=== PATIENT | female | born 1990 | race Caucasian/White ===

== ENCOUNTER → 2016-05-15 | Outpatient (CLI) | payer OTHER | LOC: OD 14:33 | PROVIDERS: ATTEND Midwife | DX: J06.9 Acute upper respiratory infection, unspecified (principal); R07.0 Pain in throat | CPT/HCPCS: 87070; 87804; 87880 ==

== ENCOUNTER 2016-06-28 02:42 | Outpatient (CLI) | payer OTHER ==
[2016-06-28 03:55] LABS: APPEARANCE,URINE SLIGHTLY-CLOUDY; BILIRUBIN,URINE NEGATIVE (NEGATIVE); GLUCOSE, URINE NEGATIVE (NEGATIVE); KETONES,URINE NEGATIVE (NEGATIVE); LEUKOCYTE ESTERASE,URINE MODERATE (NEGATIVE); NITRITE,URINE NEGATIVE (NEGATIVE); PROTEIN,URINE NEGATIVE (NEGATIVE); URINE SPECIFIC GRAVITY 1.012; UROBILINOGEN,URINE NEGATIVE mg/dL (<2.0)
[2016-06-28 04:15] LABS: URINE BARBITURATES SCREEN NEGATIVE; URINE METHADONE SCREEN NEGATIVE; URINE OPIATES LOW NEGATIVE; URINE PHENCYCLIDINE SCREEN NEGATIVE
[2016-06-28] MEDS ORDERED: ONDANSETRON 4 MG TAB.RAPDIS ONE (04:51)
[2016-06-28] MEDS ORDERED: ONDANSETRON 4 MG TAB.RAPDIS PO ONE (05:00)
== END 2016-06-28 05:01 | disposition home or self-care (01) ==
LOC: LC 02:42
PROVIDERS: ATTEND Student in an Organized Health Care Education/Training Program
PROC: 4A1HXCZ Monitoring of Products of Conception, Cardiac Rate, External Approach (ICD-10-PCS; principal; 2016-06-28)
DX: O47.1 False labor at or after 37 completed weeks of gestation (principal); Z3A.39 39 weeks gestation of pregnancy
CPT/HCPCS: 59025; 81005; 80307; S0119

== ENCOUNTER 2016-06-28 07:01 | Inpatient (IN) | payer OTHER ==
--- NOTE | 2016-06-28 07:04 | Non Stress Test Report ---
Non Stress Test Datetime Report Generated by CPN: 06/28/2016 07:04 DEMOGRAPHIC EGA NST: 39.3 INDICATION Indication for Study: Ordered by Provider Indication for Study (NST) Other: LC MONITORING Monitor Explained: Monitor Explained; Test Explained; Patient Verbalized Understanding Time on Monitor: 06/28/2016 02:58 Time off Monitor: 06/28/2016 03:30 NST Duration: 32 NST INTERVENTIONS NST Interventions: PO Hydration; Reposition Patient Physician Notified NST: Dr. Echevarria BABY A: [id number] BABY A Movement : Present Contraction Frequency : 1-4 FHR Baseline : 120 Accelerations : 15X15 Decelerations : None Variability : Moderate 6-25bpm NST Review: Meets Criteria for Reactive NST NST Review and Verified By : NEHEMIAS Garcia NST Results: Reactive NST REPORT Report Trigger: Send Report
--- NOTE | 2016-06-28 08:00 | L&D Flow Sheet ---
LD Flowsheet Datetime Report Generated by CPN: 06/28/2016 08:00 Datetime: 06/28/2016 07:49 NBP Sys/Lela/Mean (mmHg): 141 (QS system process) : 92 (QS system process) : 110 (QS system process) Pulse: 81 (QS system process) LaborFlag: Antepartum (QS system process) Datetime: 06/28/2016 07:38 Pain Assessment Comments: hot pack applied to back (Rucsandra Roberta, RN) Patient Care Patient Position/Activity: Left Lateral (Rucsandra Roberta, RN) Comfort Measures: Hot/Cold Pack (Rucsandra Roberta, RN) LaborFlag: Antepartum (QS system process) Datetime: 06/28/2016 07:34 NBP Sys/Lela/Mean (mmHg): 135 (QS system process) : 93 (QS system process) : 108 (QS system process) Pulse: 81 (QS system process) LaborFlag: Antepartum (QS system process) Datetime: 06/28/2016 07:30 Uterine Activity Monitor Mode: External; Palpation (Rucsandra Roberta, RN) Frequency (min): x2 (Rucsandra Roberta, RN) Quality: Mild/Moderate (Rucsandra Roberta, RN) Duration (sec): 70-110 (Rucsandra Roberta, RN) Resting Tone (Palpate): Relaxed (Rucsandra Roberta, RN) Assessment A Monitor Mode: External US (Rucsandra Roberta, RN) FHR Baseline Rate : 125 (Rucsandra Roberta, RN) Variability: Moderate 6-25 bpm (Rucsandra Roberta, RN) Accelerations: None (Rucsandra Roberta, RN) Decelerations: None (Rucsandra Roberta, RN) Datetime: 06/28/2016 07:29 NBP Sys/Lela/Mean (mmHg): 139 (QS system process) : 90 (QS system process) : 108 (QS system process) Pulse: 84 (QS system process) LaborFlag: Antepartum (QS system process) Datetime: 06/28/2016 07:28 Temperature (F): 97.7 (Coltonandra Granados, RN) Temperature (C): 36.5 (QS system process) Frequency (min): 2-5 min (Coltonandra Granados, RN) Pain Pain Scale: 5 (Smooth Granados, RN) Pain Presence: Intermittent (Smooth Granados, RN) Pain Type: Contraction (Smooth Granados, RN) Pain Location: Abdomen; Back (Smooth Granados, RN) Pain Goal: 5 ([facility]) Pain Relief Measures: Comfort Measures ([facility]) Pain Coping: Talking Through Contractions ([facility], [facility]) Vaginal Bleeding: None ([facility], RN) Maternal Assessment Level of Consciousness: Fully Conscious ([facility]) DTR's/Clonus: DTRs 2+; No Clonus ([facility]) Headache: Denies ([facility]) Breath Sounds, Left: Clear and Equal ([facility]) Breath Sounds, Right: Clear and Equal ([facility]) Nausea/Vomiting: Denies ([facility]) LaborFlag: Antepartum (QS system process) Datetime: 06/28/2016 07:25 Patient Care Patient Position/Activity: Right Tilt (Smooth Rubinahan, RN) Datetime: 06/28/2016 07:23 Vaginal Exam Dilatation (cm): 2.5 (Smooth Granados, RN) Effacement (%): 80 (Smooth Granados, RN) Station: -2 (Smooth Granados, RN) Exam by: Serene Granados RN (Smooth Granados, RN) Datetime: 06/28/2016 07:22 Maternal Comments: pt reports taking Benadryl about 1 hour prior to arrival on L_D. (Smooth Granados, RN) Datetime: 06/28/2016 04:54 Medications Antiemetics/Antacids: Zofran ODT (mg) @ (Annotations: 4) (Sena Andrade RN) Patient Care Comments: Discussed OTC Medications and term with patient and family; all verbalized understanding. (Sena Andrade, RN) Datetime: 06/28/2016 04:48 Communication Communication: RN Reviewed Strip; Provider Orders Received; Call/Page Placed to Provider (Sena Andrade, RN) Communication Comments: Informed Dr. Echevarria of patient nausea/vomiting and vag exam; orders received for Zofran 4 mg ODT and to discharge home. (Sena Andrade, RN) Datetime: 06/28/2016 04:43 Vaginal Exam Dilatation (cm): 2.0 (Sena Field, RN) Effacement (%): 50 ([facility], RN) Station: -2 ([facility], RN) Exam by: Floyd RN ([facility], RN) Datetime: 06/28/2016 03:30 Uterine Activity Monitor Mode: External; Palpation ([facility], RN) Frequency (min): 1-4 ([facility] Quality: Mild ([facility], [facility]) Duration (sec): 50-80 ([facility], RN) Resting Tone (Palpate): Relaxed ([facility], [facility]) Assessment A Monitor Mode: External US (Sena Field, RN) FHR Baseline Rate : 120 (Sena Field, RN) Variability: Moderate 6-25 bpm (Sena Field, RN) Accelerations: 15X15 (Sena Field, RN) Decelerations: None (Sena Field, RN) Patient Care Patient Position/Activity: Birthing Ball (Sena Field, RN) Patient Care Comments: Patient off monitor sitting on birthing ball to be rechecked in an hour (Sena Field, RN) Datetime: 06/28/2016 03:08 Frequency (min): q3-5 minutes (Sena Field, RN) Pain Pain Scale: 4 ([facility], ) Pain Presence: Intermittent ([facility], ) Pain Type: Cramping; Contraction ([facility], ) Pain Location: Abdomen; Back ([facility], ) Pain Goal: 0 ([facility]) Pain Relief Measures: Comfort Measures ([facility]) Pain Coping: Talking Through Contractions; Breathing Through Contractions ([facility], ) Vaginal Bleeding: Normal Show ([facility]) Maternal Assessment Level of Consciousness: Fully Conscious ([facility], ) DTR's/Clonus: DTRs 2+; No Clonus ([facility], ) Headache: Denies ([facility], ) Breath Sounds, Right: Clear and Equal ([facility], ) Nausea/Vomiting: Present ([facility]) RUQ Epigastric Pain: Denies ([facility]) Teaching Instructional Method: Verbal; Patient Instructed; Family/Support Person Instructed; Verbalized Understanding (Sena Andrade RN) Plan of Care: Plan of Care Discussed (Sena Andrade RN) Unit Routine: [place] to Room; Call Waterman; Bed; Visiting Policy; Waiting Areas; Security; Phone/Cell Phone Use; Unit Personnel; Handwashing; Monitoring; Safety/Fall Risk Prevention; Bathroom Privileges (Sena Andrade RN) Communication Comments: Dr. Sterling notified of pt's presence and c/o. u/c's. Informed of office visit on 06/27 and SVE in office. To walk pt past reactive strip and to recheck in 2 hours. (Eunice Young RN) LaborFlag: Antepartum (QS system process) Datetime: 06/28/2016 03:01 NBP Sys/Lela/Mean (mmHg): 121 (QS system process) : 77 (QS system process) : 93 (QS system process) Pulse: 91 (QS system process) LaborFlag: Antepartum (QS system process) Datetime: 06/28/2016 02:58 Vital Signs Stage of : Antepartum (Eunice Hannah, RN) Vaginal Exam Dilatation (cm): 2.0 (Sena Andrade RN) Effacement (%): 50 (Sena Andrade RN) Station: -2 (Sena Andrade RN) Exam by: JIN Casiano (Sena Andrade RN)
[2016-06-28] MEDS ORDERED: RINGERS SOLUTION,LACTATED 300 ML IV ONE (10:46)
[2016-06-28 11:49] LABS: ABSOLUTE LYMPHOCYTES (AUTO) 1.5 10^3/uL (0.5-4.7); ABSOLUTE MONOCYTES (AUTO) 0.7 10^3/uL (0.1-1.4); BASOPHILS % (AUTO) 0.1 % (0-2); EOSINOPHILS % (AUTO) 0.1 % (0-6); HEMOGLOBIN 10.6 g/dL (12.0-15.5); HGB HCT DIFFERENCE -0.2; LYMPHOCYTES % (AUTO) 10.3 % (13-45); MEAN CORPUSCULAR HEMOGLOBIN 27.5 pg (27.0-33.4); MEAN CORPUSCULAR HGB CONC 33.2 g/dL (32.0-36.0); MEAN CORPUSCULAR VOLUME 83 fl (80-97); MONOCYTES % (AUTO) 4.7 % (3-13); RED BLOOD COUNT 3.87 10^6/uL (3.72-5.28); RED CELL DISTRIBUTION WIDTH 14.1 % (11.5-14.0); SEGMENTED NEUTROPHILS % (AUTO) 84.8 % (42-78); WHITE BLOOD COUNT 14.2 10^3/uL (4.0-10.5)
[2016-06-28] MEDS: RINGERS SOLUTION,LACTATED 1,000 ML IV PRN ×3 (12:08→12:43)
[2016-06-28] MEDS ORDERED: FENTANYL/BUPIVACAINE/NS/PF 200 MCG/100 ML RTUINJ EPI ONE (12:11)
[2016-06-28] MEDS ORDERED: EPHEDRINE SULFATE INJ 50 MG/1 ML AMPULE ONE ×2 (12:11→20:39)
[2016-06-28] MEDS ORDERED: BUPIVACAINE HCL 0.25 % INJ/PF (2.5 MG/1 ML) 30 ML VIAL ONE (12:11)
[2016-06-28] MEDS ORDERED: OXYTOCIN/NORMAL SALINE 20 UNIT/1,000 ML RTUINJ ONE ×3 (16:13→20:40)
--- NOTE | 2016-06-28 16:24 | L&D Progress Notes ---
PROGRESS NOTES Datetime Report Generated by CPN: 06/28/2016 16:24 PROGRESS NOTE Procedures: Intrauterine Pressure Catheter Plan: Augmentation Comment: Pit augmentation guided by mvus. MEMBRANES Membranes: Intact FETUS A FHR Category: Category I : 39.3 Presentation: Vertex SIGNATURE SIGNATURE: [id number] SIGNATURE: [id number] Signature: with User ID: [email or web address] : I personally evaluated and examined the patient in conjunction with the P and agree with the assessment, treatment plan and disposition.
[2016-06-28] MEDS ORDERED: MAG HYDROX/AL HYDROX/SIMETH SUSP 30 ML UDCUP ONE (17:29)
--- NOTE | 2016-06-28 20:01 | L&D Flow Sheet ---
LD Flowsheet Datetime Report Generated by CPN: 06/28/2016 20:00 Datetime: 06/28/2016 19:56 Pulse: 82 (QS system process) SpO2 (%): 98 (QS system process) LaborFlag: Antepartum (QS system process) Datetime: 06/28/2016 19:52 Pulse: 91 (QS system process) SpO2 (%): 93 (QS system process) Exam by: Floyd Chappell RN (Milvia Cornelius RN) Vaginal Exam Comments: No change (Milvia Cornelius, RN) LaborFlag: Antepartum (QS system process) Datetime: 06/28/2016 19:51 Pulse: 85 (QS system process) SpO2 (%): 96 (QS system process) LaborFlag: Antepartum (QS system process) Datetime: 06/28/2016 19:50 Pitocin (milliunit): Pitocin Discontinued (Milvia Cornelius, RN) Patient Position/Activity: Left Lateral (Milvia Cornelius, RN) Datetime: 06/28/2016 19:49 IV/Blood Work: IV Bolus Started (Milvia Cornelius, RN) Patient Position/Activity: Right Lateral (Milvia Cornelius, RN) Datetime: 06/28/2016 19:46 NBP Sys/Lela/Mean (mmHg): 132 (QS system process) : 79 (QS system process) : 100 (QS system process) Pulse: 99 (QS system process) LaborFlag: Antepartum (QS system process) Datetime: 06/28/2016 19:32 NBP Sys/Lela/Mean (mmHg): 134 (QS system process) : 70 (QS system process) : 95 (QS system process) Pulse: 77 (QS system process) LaborFlag: Antepartum (QS system process) Datetime: 06/28/2016 19:17 NBP Sys/Lela/Mean (mmHg): 131 (QS system process) : 71 (QS system process) : 93 (QS system process) Pulse: 84 (QS system process) LaborFlag: Antepartum (QS system process) Datetime: 06/28/2016 19:14 Pitocin (milliunit): Pitocin Remains (milliunits) @ (Annotations: 8 ) (Smooth Granados RN) Communication: Report Given to @ Floyd Chappell RN. Care relinquished (Smooth Granados RN) Datetime: 06/28/2016 19:01 NBP Sys/Lela/Mean (mmHg): 114 (QS system process) : 55 (QS system process) : 77 (QS system process) Pulse: 73 (QS system process) LaborFlag: Antepartum (QS system process) Datetime: 06/28/2016 19:00 Monitor Mode: Internal; Palpation (Smooth Granados RN) Frequency (min): 1.5-2.5 (Smooth Granados RN) Quality: Moderate to Strong (Smooth Granados RN) Duration (sec): 50-70 (Smooth Granados RN) Resting Tone (Palpate): Relaxed (Smooth Granados RN) Contraction Comments: intensity: 60-75; resting tone: 25-30; TGN=390 (Smooth Granados, RN) Monitor Mode: External US (Smooth Granados, RN) FHR Baseline Rate : 125 (Smooth Granados, RN) Variability: Moderate 6-25 bpm (Smooth Granados, RN) Accelerations: None (Smooth Granados, RN) Decelerations: None (Smooth Granados, RN) Datetime: 06/28/2016 18:46 NBP Sys/Lela/Mean (mmHg): 108 (QS system process) : 55 (QS system process) : 76 (QS system process) Pulse: 85 (QS system process) LaborFlag: Antepartum (QS system process) Datetime: 06/28/2016 18:45 Monitor Mode: Internal; Palpation (Smooth Granados, RN) Frequency (min): 1.5-3.5 (Smooth Granados, RN) Quality: Moderate to Strong (Smooth Granados, RN) Duration (sec): 40-70 (Ruabdoulayeandra Granados, RN) Resting Tone (Palpate): Relaxed (Rucsandra Granados, RN) Contraction Comments: Intensity: 60-80; resting tone: 20-30; TRF=446 (Ruabdoulayeandra Granados, RN) Monitor Mode: External US (Smooth Granados, RN) FHR Baseline Rate : 130 (Rucsandra Roberta, RN) Variability: Moderate 6-25 bpm (Rucsandra Roberta, RN) Accelerations: None (Rucsandra Granados, RN) Decelerations: None (Rucsandra Granados, RN) Datetime: 06/28/2016 18:31 NBP Sys/Lela/Mean (mmHg): 112 (QS system process) : 61 (QS system process) : 78 (QS system process) Pulse: 81 (QS system process) LaborFlag: Antepartum (QS system process) Datetime: 06/28/2016 18:30 Monitor Mode: Internal; Palpation (Smooth Granados, RN) Frequency (min): 1.5-2 (Rucsandra Granados, RN) Quality: Mild/Moderate (Rucsandra Roberta, RN) Duration (sec): 60-80 (Rucsandra Roberta, RN) Resting Tone (Palpate): Relaxed (Rucsandra Roberta, RN) Contraction Comments: Intensity: 50-60; Resting tone: 20-25; AGA=152 (Rucsandra Roberta, RN) Monitor Mode: External US (Coltonandra Granados, RN) FHR Baseline Rate : 135 (Rucsandra Roberta, RN) Variability: Minimal - Undetectable to <=5 bpm (Rucsandra Roberta, RN) Accelerations: None (Rucsandra Roberta, RN) Decelerations: None (Rucsandra Roberta, RN) Datetime: 06/28/2016 18:18 NBP Sys/Lela/Mean (mmHg): 117 (QS system process) : 74 (QS system process) : 90 (QS system process) Pulse: 78 (QS system process) LaborFlag: Antepartum (QS system process) Datetime: 06/28/2016 18:15 Monitor Mode: Internal; Palpation (Smooth Granados, JIN) Frequency (min): 1.5-3 (Smooth Granados, RN) Quality: Mild/Moderate (Smooth Granados, RN) Duration (sec): 50-80 (Smooth Granados, RN) Resting Tone (Palpate): Relaxed (Smooth Granados, RN) Contraction Comments: intensity: 50-60; resting tone: 15-25; LMC=183 (Smooth Granados, RN) Monitor Mode: External US (Smooth Granados, RN) FHR Baseline Rate : 130 (Smooth Granados, RN) Variability: Moderate 6-25 bpm (Smooth Granados, RN) Accelerations: None (Smooth Granados, RN) Decelerations: None (Smooth Granados, RN) Pitocin (milliunit): Pitocin Increased to (milliunits) @ 8 (Smooth Granados, RN) Datetime: 06/28/2016 18:10 Provider Reviewed Strip: Yes (Smooth Granados RN) Strip Reviewed by: Dr Reddy (Smooth Granados RN) Communication Comments: Dr Reddy on unit, strip reviewed. Advised of pitocin infusion at 6 milliunits/min. No new orders. (Smooth Granados RN) Datetime: 06/28/2016 18:02 NBP Sys/Lela/Mean (mmHg): 111 (QS system process) : 57 (QS system process) : 77 (QS system process) Pulse: 86 (QS system process) LaborFlag: Antepartum (QS system process) Datetime: 06/28/2016 18:01 Temperature (F): 98.0 (Coltonandra Granados, RN) Temperature (C): 36.7 (QS system process) LaborFlag: Antepartum (QS system process) Datetime: 06/28/2016 18:00 Monitor Mode: Internal; Palpation (Smooth Granados, RN) Frequency (min): 1.5-2 (Smooth Granados, RN) Quality: Mild/Moderate (Rucsmarisa Granados, RN) Duration (sec): 50-70 (Rucsandra Garnados, RN) Resting Tone (Palpate): Relaxed (Rucsandra Granados, RN) Contraction Comments: unable to determine MVUs during this period. (Rukaylie Granados, RN) Monitor Mode: External US (Smooth Granados, RN) FHR Baseline Rate : 130 (Rucsandra Roberta, RN) Variability: Moderate 6-25 bpm (Rucsandra Roberta, RN) Accelerations: 15X15 (Rucsandra Roberta, RN) Decelerations: None (Rucsandra Roberta, RN) Datetime: 06/28/2016 17:59 Patient Position/Activity: Left Lateral; Peanut Ball (Smooth Granados, RN) Hygiene: Underpad Changed (Smooth Granados, RN) Datetime: 06/28/2016 17:56 Contraction Comments: IUPC re-zeroed and flushed. (Smooth Granados, RN) Datetime: 06/28/2016 17:53 NBP Sys/Lela/Mean (mmHg): 118 (QS system process) : 59 (QS system process) : 81 (QS system process) Pulse: 81 (QS system process) LaborFlag: Antepartum (QS system process) Datetime: 06/28/2016 17:51 Maternal Comments: pt reports no longer feeling heart burn (Rucsandra Roberta, RN) Datetime: 06/28/2016 17:45 Monitor Mode: Internal; Palpation (Rucsandra Roberta, RN) Frequency (min): 1-2.5 (Rucsandra Roberta, RN) Quality: Mild/Moderate (Rucsandra Roberta, RN) Duration (sec): 40-60 (Rucsandra Roberta, RN) Resting Tone (Palpate): Relaxed (Rucsandra Roberta, RN) Contraction Comments: Intensity: 25-70; resting tone: 0-20; MVU= 160 (Rucsandra Roberta, RN) Monitor Mode: External US (Rucsandra Roberta, RN) FHR Baseline Rate : 130 (Rucsandra Roberta, RN) Variability: Moderate 6-25 bpm (Rucsandra Roberta, RN) Accelerations: 15X15 (Rucsandra Roberta, RN) Decelerations: None (Rucsandra Roberta, RN) Datetime: 06/28/2016 17:39 NBP Sys/Lela/Mean (mmHg): 128 (QS system process) : 60 (QS system process) : 86 (QS system process) Pulse: 88 (QS system process) LaborFlag: Antepartum (QS system process) Datetime: 06/28/2016 17:30 Monitor Mode: Internal; Palpation (Smooth Granados RN) Frequency (min): 1.5-3.5 (Smooth Granados RN) Quality: Mild/Moderate (Smooth Granados RN) Duration (sec): 40-60 (Smooth Granados RN) Resting Tone (Palpate): Relaxed (Smooth Granados RN) Contraction Comments: Resting tone: 15-30; Intensity: 45-70; MVU= 160 (Smooth Granados RN) Monitor Mode: External US (Smooth Granados RN) FHR Baseline Rate : 125 (Smooth Granados RN) Variability: Moderate 6-25 bpm (Smooth Granados RN) Accelerations: 15X15 (Smooth Granados RN) Decelerations: None (Smooth Granados RN) Pitocin (milliunit): Pitocin Increased to (milliunits) @ 6 (Smooth Granados RN) Antiemetics/Antacids: Maalox PO (ml) @ 30ml (Rucsandra Roberta, RN) Medication Comments: Intended effects and possible side effects explained to pt. Pt agrees and V/U. (Smooth Granados, RN) Datetime: 06/28/2016 17:27 Maternal Comments: pt complains of heart burn, requesting medication. (Smooth Granados, RN) Datetime: 06/28/2016 17:24 NBP Sys/Lela/Mean (mmHg): 106 (QS system process) : 60 (QS system process) : 78 (QS system process) Pulse: 79 (QS system process) LaborFlag: Antepartum (QS system process) Datetime: 06/28/2016 17:15 Monitor Mode: Internal; Palpation (Smooth Granados RN) Frequency (min): 3-4 (Smooth Granados RN) Quality: Mild/Moderate (Smooth Granados RN) Duration (sec): 60-90 (Smooth Granados RN) Resting Tone (Palpate): Relaxed (Smooth Granados RN) Contraction Comments: Intensity: 60-70; Resting tone: 15-30, IIE=119 (Smooth Granados, RN) Monitor Mode: External US (Smooth Granados RN) FHR Baseline Rate : 125 (Smooth Granados RN) Variability: Moderate 6-25 bpm (Smooth Granados RN) Accelerations: 15X15 (Smooth Granados, RN) Decelerations: None (Smooth Granados RN) Maternal Comments: pt sleeping (Smooth Granados RN) Pitocin (milliunit): Pitocin Increased to (milliunits) @ 4 (Smooth Granados, JIN) Datetime: 06/28/2016 17:08 NBP Sys/Lela/Mean (mmHg): 107 (QS system process) : 57 (QS system process) : 76 (QS system process) Pulse: 79 (QS system process) LaborFlag: Antepartum (QS system process) Datetime: 06/28/2016 17:03 Patient Position/Activity: Left Tilt; High Fowlers (Rucsandra Roberta, RN) Datetime: 06/28/2016 17:00 Monitor Mode: Internal; Palpation (Rucsandra Roberta, RN) Frequency (min): 1.5-3 (Rucsandra Roberta, RN) Quality: Mild/Moderate (Rucsandra Roberta, RN) Duration (sec): 40-70 (Rucsandra Roberta, RN) Resting Tone (Palpate): Relaxed (Rucsandra Roberta, RN) Contraction Comments: intensity: 40-70; Resting tone: 15-25; MVU= 165 (Rucsandra Roberta, RN) Monitor Mode: External US (Rucsandra Roberta, RN) FHR Baseline Rate : 125 (Rucsandra Roberta, RN) Variability: Moderate 6-25 bpm (Rucsandra Roberta, RN) Accelerations: 15X15 (Rucsandra Roberta, RN) Decelerations: None (Rucsandra Roberta, RN) Datetime: 06/28/2016 16:54 NBP Sys/Lela/Mean (mmHg): 108 (QS system process) : 61 (QS system process) : 78 (QS system process) Pulse: 83 (QS system process) LaborFlag: Antepartum (QS system process) Datetime: 06/28/2016 16:45 Monitor Mode: Internal; Palpation (Smooth Granados RN) Frequency (min): 1.5-5 (Smooth Granados, RN) Quality: Mild/Moderate (Smooth Granados, RN) Duration (sec): 40-70 (Smooth Granados, RN) Resting Tone (Palpate): Relaxed (Smooth Granados, RN) Contraction Comments: Intensity: 40-70; Resting Tone: 25-30; MVU= 105 (Smooth Granados, RN) Monitor Mode: External US (Smooth Granados RN) FHR Baseline Rate : 125 (Smooth Granados, RN) Variability: Moderate 6-25 bpm (Smooth Granados, RN) Accelerations: None (Smooth Granados, RN) Decelerations: None (Smooth Granados, RN) Datetime: 06/28/2016 16:42 Pitocin (milliunit): Pitocin Started (milliunits) @ 2 (Smooth Granados, RN) Medication Comments: Intended effects and possible side effects explained to pt. Pt agrees and V/U. (Smooth Granados, RN) Datetime: 06/28/2016 16:38 NBP Sys/Lela/Mean (mmHg): 116 (QS system process) : 62 (QS system process) : 82 (QS system process) Pulse: 75 (QS system process) LaborFlag: Antepartum (QS system process) Datetime: 06/28/2016 16:30 Monitor Mode: Internal; Palpation (Rucsandra Roberta, RN) Frequency (min): x2 (Rucsandra Roberta, RN) Duration (sec): 40-60 (Rucsandra Roberta, RN) Resting Tone (Palpate): Relaxed (Rucsandra Roberta, RN) Contraction Comments: Intensity: 45-70, Resting tone: 25-30; MVU= 55 (Rucsandra Roberta, RN) Monitor Mode: External US (Rucsandra Roberta, RN) FHR Baseline Rate : 125 (Rucsandra Roberta, RN) Variability: Moderate 6-25 bpm (Rucsandra Roberta, RN) Accelerations: 15X15 (Rucsandra Roberta, RN) Decelerations: None (Rucsandra Roberta, RN) Datetime: 06/28/2016 16:24 NBP Sys/Lela/Mean (mmHg): 120 (QS system process) : 66 (QS system process) : 88 (QS system process) Pulse: 75 (QS system process) LaborFlag: Antepartum (QS system process) Datetime: 06/28/2016 16:18 Monitor Interventions for UA: IUPC Inserted (Smooth Granados RN) Contraction Comments: IUPC placed by Dr Reddy (Smooth Granados RN) Dilatation (cm): 7.0 (Smooth Granados RN) Effacement (%): 90 (Smooth Granados RN) Station: -1 (Smooth Granados RN) Exam by: Dr. Reddy (Smooth Granados RN) Datetime: 06/28/2016 16:16 Communication Comments: Dr Reddy at bedside, strip reviewed, POC discussed with pt, pt agrees and V/U. (Smooth Granados RN) Datetime: 06/28/2016 16:15 Monitor Mode: External; Palpation (Smooth Granados RN) Resting Tone (Palpate): Relaxed (Smooth Granados RN) Contraction Comments: difficulty tracing ctx (Smooth Granados RN) Monitor Mode: External US (Smooth Granados RN) FHR Baseline Rate : 125 (Smooth Granados RN) Variability: Moderate 6-25 bpm (Smooth Granados RN) Accelerations: 15X15 (Smooth Granados RN) Decelerations: None (Smooth Granados RN) Datetime: 06/28/2016 16:13 Monitor Interventions for UA: [place] Adjusted (Smooth Granados RN) Datetime: 06/28/2016 16:08 NBP Sys/Lela/Mean (mmHg): 109 (QS system process) : 54 (QS system process) : 78 (QS system process) Pulse: 78 (QS system process) Temperature (F): 98.1 (Smooth Granados RN) Temperature (C): 36.7 (QS system process) Pain Scale: 0 (Smooth Granados RN) Pain Presence: None/Denies (Smooth Granados RN) Pain Type: N/A (Rucsandra Roberta, RN) LaborFlag: Antepartum (QS system process) Datetime: 06/28/2016 16:07 Patient Position/Activity: Left Lateral; Peanut Ball (Smooth Granados RN) Hygiene: Underpad Changed (Smooth Granados, JIN) Datetime: 06/28/2016 16:06 Dilatation (cm): 7.0 (Smooth Granados RN) Effacement (%): 80 (Smooth Granados RN) Station: -1 (Smooth Granados RN) Exam by: Serene Granados RN (Smooth Granados, JIN) Vaginal Bleeding: None (Smooth Granados, JIN) Datetime: 06/28/2016 16:05 Maternal Comments: pt reports feeling occasional pressure (Rucsandra Roberta, RN) Datetime: 06/28/2016 16:00 Monitor Mode: External; Palpation (Rucsandra Roberta, RN) Frequency (min): x1 (Rucsandra Roberta, RN) Quality: Mild/Moderate (Rucsandra Roberta, RN) Duration (sec): 60 (Rucsandra Roberta, RN) Resting Tone (Palpate): Relaxed (Rucsandra Roberta, RN) Monitor Mode: External US (Rucsandra Roberta, RN) FHR Baseline Rate : 120 (Rucsandra Roberta, RN) Variability: Moderate 6-25 bpm (Rucsandra Roberta, RN) Accelerations: None (Rucsandra Roberta, RN) Decelerations: None (Rucsandra Roberta, RN) Datetime: 06/28/2016 15:54 Monitor Interventions for UA: [place] Adjusted (Smooth Granados, JIN) Datetime: 06/28/2016 15:53 NBP Sys/Lela/Mean (mmHg): 102 (QS system process) : 54 (QS system process) : 74 (QS system process) Pulse: 78 (QS system process) LaborFlag: Antepartum (QS system process) Datetime: 06/28/2016 15:45 Monitor Mode: External; Palpation (Smooth Granados RN) Frequency (min): x2 (Smooth Granados RN) Quality: Mild/Moderate (Smooth Granados RN) Duration (sec): 50-60 (Smooth Granados RN) Resting Tone (Palpate): Relaxed (Smooth Granados RN) Monitor Mode: External US (Smooth Granados RN) FHR Baseline Rate : 125 (Smooth Granados RN) Variability: Minimal - Undetectable to <=5 bpm (Smooth Granados RN) Accelerations: None (Rucsandra Roberta, RN) Decelerations: Variable (Rucsandra Roberta, RN) Datetime: 06/28/2016 15:39 Monitor Interventions for UA: [place] Adjusted (Rucsandra Roberta, RN) Datetime: 06/28/2016 15:38 NBP Sys/Lela/Mean (mmHg): 108 (QS system process) : 56 (QS system process) : 75 (QS system process) Pulse: 68 (QS system process) LaborFlag: Antepartum (QS system process) Datetime: 06/28/2016 15:34 Monitor Interventions for UA: [place] Adjusted (Rucsandra Roberta, RN) Datetime: 06/28/2016 15:30 Monitor Mode: External; Palpation (Rucsandra Roberta, RN) Frequency (min): 4-5 (Rucsandra Roberta, RN) Quality: Mild/Moderate (Rucsandra Roberta, RN) Duration (sec): 60-70 (Rucsandra Roberta, RN) Resting Tone (Palpate): Relaxed (Rucsandra Roberta, RN) Monitor Mode: External US (Rucsandra Roberta, RN) FHR Baseline Rate : 125 (Rucsandra Roberta, RN) Variability: Moderate 6-25 bpm (Rucsandra Roberta, RN) Accelerations: None (Rucsandra Roberta, RN) Decelerations: None (Rucsandra Roberta, RN) Datetime: 06/28/2016 15:25 Patient Position/Activity: Right Lateral; Peanut Ball (Rucsandra Roberta, RN) Datetime: 06/28/2016 15:23 NBP Sys/Lela/Mean (mmHg): 117 (QS system process) : 59 (QS system process) : 80 (QS system process) Pulse: 90 (QS system process) LaborFlag: Antepartum (QS system process) Datetime: 06/28/2016 15:15 Monitor Mode: External; Palpation (Smooth Granados, RN) Frequency (min): 2.5-4 (Rucsandra Granados, RN) Quality: Mild/Moderate (Rucsandra Roberta, RN) Duration (sec): 60-80 (Rucsandra Roberta, RN) Resting Tone (Palpate): Relaxed (Rucsandra Roberta, RN) Monitor Mode: External US (Smooth Granados, RN) FHR Baseline Rate : 125 (Rucsandra Roberta, RN) Variability: Moderate 6-25 bpm (Rucsandra Roberta, RN) Accelerations: None (Rucsandra Roberta, RN) Decelerations: None (Rucsandra Roberta, RN) Datetime: 06/28/2016 15:08 NBP Sys/Lela/Mean (mmHg): 119 (QS system process) : 58 (QS system process) : 83 (QS system process) Pulse: 78 (QS system process) LaborFlag: Antepartum (QS system process) Datetime: 06/28/2016 15:00 Monitor Mode: External; Palpation (Rucsandra Granados, RN) Frequency (min): 2.5-4 (Rucsandra Roberta, RN) Quality: Mild/Moderate (Rucsandra Roberta, RN) Duration (sec): 40-80 (Rucsandra Roberta, RN) Resting Tone (Palpate): Relaxed (Rucsandra Roberta, RN) Monitor Mode: External US (Rucsandra Roberta, RN) FHR Baseline Rate : 125 (Rucsandra Roberta, RN) Variability: Moderate 6-25 bpm (Rucsandra Roberta, RN) Accelerations: 15X15 (Rucsandra Roberta, RN) Decelerations: None (Rucsandra Roberta, RN) Datetime: 06/28/2016 14:54 NBP Sys/Lela/Mean (mmHg): 116 (QS system process) : 56 (QS system process) : 79 (QS system process) Pulse: 81 (QS system process) LaborFlag: Antepartum (QS system process) Datetime: 06/28/2016 14:45 Monitor Mode: External; Palpation (Coltonandra Granados, RN) Frequency (min): 1.5-9 (Rucsandra Roberta, RN) Quality: Mild/Moderate (Rucsandra Roberta, RN) Duration (sec): 40-70 (Rucsandra Roberta, RN) Resting Tone (Palpate): Relaxed (Rucsandra Roberta, RN) Monitor Mode: External US (Rucsandra Roberta, RN) FHR Baseline Rate : 125 (Rucsandra Roberta, RN) Variability: Moderate 6-25 bpm (Rucsandra Roberta, RN) Accelerations: 15X15 (Rucsandra Roberta, RN) Decelerations: None (Rucsandra Roberta, RN) Datetime: 06/28/2016 14:43 I/O Interventions: Popsicle; Clear Liquids Given (Smooth Granados, RN) Datetime: 06/28/2016 14:39 NBP Sys/Lela/Mean (mmHg): 116 (QS system process) : 58 (QS system process) : 81 (QS system process) Pulse: 83 (QS system process) LaborFlag: Antepartum (QS system process) Datetime: 06/28/2016 14:30 Monitor Mode: External; Palpation (Smooth Granados, RN) Frequency (min): 3-5.5 (Rucsandra Roberta, RN) Quality: Mild/Moderate (Rucsandra Roberta, RN) Duration (sec): 40-60 (Rucsandra Roberta, RN) Resting Tone (Palpate): Relaxed (Rucsandra Roberta, RN) Monitor Mode: External US (Rucsandra Roberta, RN) FHR Baseline Rate : 130 (Rucsandra Roberta, RN) Variability: Moderate 6-25 bpm (Rucsandra Roberta, RN) Accelerations: 15X15 (Rucsandra Roberta, RN) Decelerations: None (Rucsandra Roberta, RN) Datetime: 06/28/2016 14:23 NBP Sys/Lela/Mean (mmHg): 113 (QS system process) : 57 (QS system process) : 81 (QS system process) Pulse: 82 (QS system process) LaborFlag: Antepartum (QS system process) Datetime: 06/28/2016 14:15 Monitor Mode: External; Palpation (Rucsandra Roberta, RN) Frequency (min): 2.5-5 (Rucsandra Roberta, RN) Quality: Mild/Moderate (Smooth Granados, RN) Duration (sec): 40-70 (Smooth Granados, RN) Resting Tone (Palpate): Relaxed (Smooth Granados, RN) Monitor Mode: External US (Smooth Granados RN) FHR Baseline Rate : 130 (Smooth Granados, RN) Variability: Moderate 6-25 bpm (Smooth Granados, RN) Decelerations: Early (Rucsmarisa Granados, RN) Datetime: 06/28/2016 14:09 NBP Sys/Lela/Mean (mmHg): 115 (QS system process) : 56 (QS system process) : 80 (QS system process) Pulse: 80 (QS system process) LaborFlag: Antepartum (QS system process) Datetime: 06/28/2016 14:00 Monitor Mode: External; Palpation (Smooth Granados, RN) Frequency (min): 5-7 (Smooth Granados, RN) Quality: Moderate to Strong (Rucsandra Roberta, RN) Duration (sec): 50-80 (Coltonandra Granados, RN) Resting Tone (Palpate): Relaxed (Coltonandra Granados, RN) Monitor Mode: External US (Smooth Granados, RN) FHR Baseline Rate : 120 (Ruabdoulayeandra Granados, RN) Variability: Moderate 6-25 bpm (Rucsandra Roberta, RN) Accelerations: 15X15 (Rucsandra Roberta, RN) Decelerations: Early; Variable (Rucsandra Roberta, RN) Datetime: 06/28/2016 13:54 Provider Reviewed Strip: Yes (Smotoh Granados, RN) Strip Reviewed by: Cipriano Myers CNM (Smooth Granados, RN) Communication Comments: KAPIL on unit, strip reviewed. No new orders. (Ruabdoulayeandra Granados, RN) Datetime: 06/28/2016 13:50 IV/Blood Work: New IV Bag Hung (Smooth Granados, RN) Datetime: 06/28/2016 13:49 Hygiene: Underpad Changed (Smooth Granados, ) Datetime: 06/28/2016 13:47 Dilatation (cm): 7.0 (Smooth Granados RN) Effacement (%): 90 (Smooth Granados RN) Station: -2 (Smooth Granados RN) Exam by: Serene Granados RN (Smooth Granados RN) Membrane Status: Ruptured (Smooth Granados RN) Membranes Rupture Method: Spontaneous (Smooth Granados RN) Amniotic Fluid Color: Moderate Meconium (Smooth Granados RN) Amniotic Fluid Amount: Moderate (Smooth Granados RN) Datetime: 06/28/2016 13:45 Monitor Mode: External; Palpation (Rucsandra Roberta, RN) Frequency (min): 4-5 (Rucsandra Roberta, RN) Quality: Moderate to Strong (Rucsandra Roberta, RN) Duration (sec): 60-80 (Rucsandra Roberta, RN) Resting Tone (Palpate): Relaxed (Rucsandra Roberta, RN) Monitor Mode: External US (Rucsandra Roberta, RN) FHR Baseline Rate : 120 (Rucsandra Roberta, RN) Variability: Moderate 6-25 bpm (Rucsandra Roberta, RN) Accelerations: 15X15 (Rucsandra Roberta, RN) Decelerations: None (Rucsandra Roberta, RN) Datetime: 06/28/2016 13:38 NBP Sys/Lela/Mean (mmHg): 117 (QS system process) : 56 (QS system process) : 80 (QS system process) Pulse: 100 (QS system process) LaborFlag: Antepartum (QS system process) Datetime: 06/28/2016 13:36 NBP Sys/Lela/Mean (mmHg): 122 (QS system process) : 58 (QS system process) : 83 (QS system process) Pulse: 85 (QS system process) LaborFlag: Antepartum (QS system process) Datetime: 06/28/2016 13:34 NBP Sys/Lela/Mean (mmHg): 103 (QS system process) : 55 (QS system process) : 71 (QS system process) LaborFlag: Antepartum (QS system process) Datetime: 06/28/2016 13:32 NBP Sys/Lela/Mean (mmHg): 115 (QS system process) : 54 (QS system process) : 78 (QS system process) Pulse: 102 (QS system process) LaborFlag: Antepartum (QS system process) Datetime: 06/28/2016 13:30 NBP Sys/Lela/Mean (mmHg): 118 (QS system process) : 58 (QS system process) : 84 (QS system process) Pulse: 96 (QS system process) Temperature (F): 97.9 (Smooth Granados RN) Temperature (C): 36.6 (QS system process) Monitor Mode: External; Palpation (Smooth Granados RN) Frequency (min): x2 (Smooth Granados RN) Quality: Moderate to Strong (Smooth Granados RN) Duration (sec): 60-70 (Smooth Granados, RN) Resting Tone (Palpate): Relaxed (Smooth Granados, RN) Monitor Mode: External US (Smooth Granados, RN) FHR Baseline Rate : 120 (Smooth Granados, RN) Accelerations: 15X15 (Ruabdoulayeandra Granados, RN) Decelerations: None (Colotnandra Granados, RN) LaborFlag: Antepartum (QS system process) Datetime: 06/28/2016 13:27 NBP Sys/Lela/Mean (mmHg): 114 (QS system process) : 57 (QS system process) : 82 (QS system process) Pulse: 102 (QS system process) LaborFlag: Antepartum (QS system process) Datetime: 06/28/2016 13:24 NBP Sys/Lela/Mean (mmHg): 114 (QS system process) : 56 (QS system process) : 78 (QS system process) Pulse: 93 (QS system process) Pain Scale: 0 (Smooth Granados RN) Pain Presence: None/Denies (Smooth Granados RN) Pain Type: N/A (Smooth Granados RN) LaborFlag: Antepartum (QS system process) Datetime: 06/28/2016 13:23 Epidural Procedure Other: Pump Started (Smooth Granados RN) Datetime: 06/28/2016 13:21 Patient Position/Activity: Left Tilt (Smooth Granados, JIN) Datetime: 06/28/2016 13:15 Monitor Mode: External; Palpation (Smooth Granados RN) Resting Tone (Palpate): Relaxed (Smooth Granados RN) Contraction Comments: diffculty monitoring ctx due to maternal position for epidural placement. (Smooth Granados RN) Comments: difficulty monitoring FHTs due to maternal position for epidural placement. (Smooth Granados RN) Epidural Procedure: Loading Dose (Smooth Granados RN) Datetime: 06/28/2016 13:14 NBP Sys/Lela/Mean (mmHg): 128 (QS system process) : 75 (QS system process) : 96 (QS system process) Pulse: 81 (QS system process) Pulse: 82 (QS system process) SpO2 (%): 99 (QS system process) Epidural Procedure: Test Dose (Smooth Granados, RN) LaborFlag: Antepartum (QS system process) Datetime: 06/28/2016 13:13 Epidural Procedure: Cath Placed (Smooth Granados, RN) Datetime: 06/28/2016 13:09 Pulse: 86 (QS system process) SpO2 (%): 99 (QS system process) LaborFlag: Antepartum (QS system process) Datetime: 06/28/2016 13:04 Pulse: 80 (QS system process) SpO2 (%): 100 (QS system process) SpO2 (%): 91 (QS system process) LaborFlag: Antepartum (QS system process) Datetime: 06/28/2016 13:01 Procedure Type: epidural (Smooth Granados RN) Procedure Verify: Correct Patient Identity; Accurate Procedure Consent Form; Agreement on Procedure to be Done; Correct Patient Position; Relevant Images and Results are Properly Labeled and Displayed (Smooth Granados RN) Anesthesia Plans: Epidural (Smooth Granados RN) Epidural Positioning: Sitting (Smooth Granados RN) Datetime: 06/28/2016 13:00 Monitor Mode: External; Palpation (Smooth Granados RN) Resting Tone (Palpate): Relaxed (Smooth Granados RN) Contraction Comments: difficulty monitoring CTX due to maternal position for epidural placement. (Smooth Granados RN) Monitor Mode: External US (Smooth Granados RN) FHR Baseline Rate : 120 (Smooth Granados, RN) Variability: Moderate 6-25 bpm (Smooth Granados, RN) Accelerations: None (Smooth Granados, RN) Decelerations: None (Smooth Granados, RN) Anesthesia Comments: anesthesia returns to room for epidural procedure. (Coltonandra RubinRoberta, RN) Datetime: 06/28/2016 12:56 Communication Comments: anesthesia leaves after receiving emergency phone call. States he will return once issue resolved. (Smooth Rubinahan, RN) Datetime: 06/28/2016 12:52 Anesthesia Comments: Anesthesia at bedside for epidural placement. (Coltonand Roberta, RN) Datetime: 06/28/2016 12:51 NBP Sys/Lela/Mean (mmHg): 124 (QS system process) : 68 (QS system process) : 91 (QS system process) Pulse: 77 (QS system process) LaborFlag: Antepartum (QS system process) Datetime: 06/28/2016 12:46 Procedure Type: epidural (Smooth Granados RN) Procedure Verify: Correct Patient Identity; Accurate Procedure Consent Form; Agreement on Procedure to be Done; Correct Patient Position (Smooth Granados RN) Anesthesia Plans: Epidural (Smooth Granados RN) Epidural Positioning: Sitting (Smooth Granados RN) Anesthesia Comments: Called Anesthesia and made aware of pt request for epidural, states he is on his way. (Smooth Granados RN) Datetime: 06/28/2016 12:44 Maternal Comments: pt sitting up on side of the bed for epidural placement. (Dain Roberta, RN) Datetime: 06/28/2016 12:43 IV/Blood Work: New IV Bag Hung (Smooth Granados, RN) Patient Care Comments: LR bag#3 (Smooth Granados, RN) Datetime: 06/28/2016 12:39 NBP Sys/Lela/Mean (mmHg): 131 (QS system process) : 93 (QS system process) : 107 (QS system process) Pulse: 83 (QS system process) LaborFlag: Antepartum (QS system process) Datetime: 06/28/2016 12:36 Maternal Comments: pt returns from bathroom without incident, pt standing at bedside. (Smooth Granados, RN) Datetime: 06/28/2016 12:30 Monitor Mode: External; Palpation (Rucsandra Granados, RN) Frequency (min): 2.5-3.5 (Rucsandra Roberta, RN) Quality: Mild/Moderate (Rucsandra Roberta, RN) Duration (sec): 40-60 (Rucsandra Roberta, RN) Resting Tone (Palpate): Relaxed (Rucsandra Roberta, RN) Monitor Mode: External US (Rucsandra Granados, RN) FHR Baseline Rate : 120 (Rucsandra Roberta, RN) Variability: Moderate 6-25 bpm (Rucsandra Roberta, RN) Accelerations: 15X15 (Rucsandra Roberta, RN) Decelerations: None (Rucsandra Roberat, RN) Datetime: 06/28/2016 12:29 I/O Interventions: Up to BR (Rucsandra Roberta, RN) Datetime: 06/28/2016 12:16 Comments: alert silenced for epidural procedure , RN and provider remain at bedside throughout procedure (Chioma Camp, RNC) Datetime: 06/28/2016 12:14 Maternal Comments: pt sitting up on side of the bed, breathing through ctx (Rucsandra Roberta, RN) Datetime: 06/28/2016 12:13 Maternal Comments: RN remains at bedside adjusting EFM (Rucsandra Roberta, RN) Datetime: 06/28/2016 12:11 NBP Sys/Lela/Mean (mmHg): 132 (QS system process) : 70 (QS system process) : 96 (QS system process) Pulse: 96 (QS system process) LaborFlag: Antepartum (QS system process) Datetime: 06/28/2016 12:05 IV/Blood Work: New IV Bag Hung (Smooth Granados RN) Patient Care Comments: LR continues to infuse at bolus rate for epidural. (Smooth Granados, RN) Datetime: 06/28/2016 12:00 Monitor Mode: External; Palpation (Smooth Granados, RN) Frequency (min): 3-4 (Smooth Granados, RN) Quality: Mild/Moderate (Coltonandra Granados, RN) Duration (sec): 50-70 (Smooth Granados, RN) Resting Tone (Palpate): Relaxed (Smooth Granados, RN) Monitor Mode: External US (Smooth Granados, RN) FHR Baseline Rate : 120 (Coltonandra Granados, RN) Variability: Moderate 6-25 bpm (Rucsandra Granados, RN) Accelerations: 15X15 (Ruabdoulayeandra Granados, RN) Decelerations: None (Coltonandra Granados, RN) Datetime: 06/28/2016 11:58 Provider Reviewed Strip: Yes (Smooth Granados RN) Strip Reviewed by: Cipriano Myers CNM (Smooth Granados RN) Communication: Provider at Bedside (Smooth Granados RN) Communication Comments: POC discussed with pt, pt agrees and V/U. (Smooth Granados, JIN) Datetime: 06/28/2016 11:46 I/O Interventions: Up to BR (Rucsandra Roberta, RN) Datetime: 06/28/2016 11:45 Maternal Comments: pt sitting up on side of the bed (Rucsandra Roberta, RN) Datetime: 06/28/2016 11:35 IV/Blood Work: Labs Drawn (Chioma Camp, RNC) Datetime: 06/28/2016 11:31 NBP Sys/Leal/Mean (mmHg): 139 (QS system process) : 86 (QS system process) : 107 (QS system process) Pulse: 80 (QS system process) LaborFlag: Antepartum (QS system process) Datetime: 06/28/2016 11:30 Monitor Mode: External; Palpation (Rucsandra Roberta, RN) Frequency (min): 3-7 (Rucsandra Roberta, RN) Quality: Mild/Moderate (Rucsandra Roberta, RN) Duration (sec): 40-60 (Rucsandra Roberta, RN) Resting Tone (Palpate): Relaxed (Rucsandra Roberta, RN) Monitor Mode: External US (Rucsandra Roberta, RN) FHR Baseline Rate : 120 (Rucsandra Roberta, RN) Variability: Moderate 6-25 bpm (Rucsandra Roberta, RN) Accelerations: 15X15 (Rucsandra Roberta, RN) Decelerations: None (Rucsandra Roberta, RN) Datetime: 06/28/2016 11:20 IV/Blood Work: IV Started; IV Bolus Started; New IV Bag Hung (Smooth Granados RN) Patient Care Comments: LR infusing at bolus rate for epidural placement. (Smooth Granados, RN) Datetime: 06/28/2016 11:17 Pain Scale: 5 (Smooth Granados RN) Pain Presence: Intermittent (Smooth Granados RN) Pain Type: Contraction (Smooth Granados, RN) Pain Location: Abdomen; Back (Smooth Granados, JIN) Pain Goal: 2 (Smooth Granados RN) Maternal Comments: pt requests epidural (Smooth Granados RN) LaborFlag: Antepartum (QS system process) Datetime: 06/28/2016 11:11 Patient Position/Activity: Left Tilt (Smooth Granados, RN) Datetime: 06/28/2016 11:04 Procedures: Consents Signed (Smooth Granados RN) I/O Interventions: Up to BR (Smooth Granados RN) Patient Care Comments: consent forms signed and witnessed. (Smooth Granados, JIN) Datetime: 06/28/2016 11:00 Monitor Mode: External; Palpation (Smooth Granados, RN) Frequency (min): 2-5 (Smooth Granados, RN) Quality: Mild/Moderate (Smooth Granados, RN) Duration (sec): 40-60 (Smooth Granados, RN) Resting Tone (Palpate): Relaxed (Smooth Granados, RN) Monitor Mode: External US (Smooth Granados, RN) FHR Baseline Rate : 120 (Smooth Granados, RN) Variability: Moderate 6-25 bpm (Smooth Granados, RN) Accelerations: None (Smooth Granados, RN) Decelerations: None (Smooth Granados, RN) Maternal Comments: pt reviewing and signing consent forms. (Smooth Granados, JIN) Datetime: 06/28/2016 10:54 Communication: Call/Page Placed to Provider (Smooth Granados RN) Provider Notified (Name): Called Cipriano Myers CNM. Advised of SVE. Orders received to change pt status to inpatient. Pt may have epidural when requested. (Smooth Granados RN) Datetime: 06/28/2016 10:52 Dilatation (cm): 5.0 (Smooth Granados RN) Effacement (%): 90 (Smooth Granados RN) Station: -2 (Smooth Granados RN) Exam by: Serene Granados RN (Smooth Granados RN) Vaginal Bleeding: Normal Show (Smooth Granados RN) Datetime: 06/28/2016 10:51 NBP Sys/Lela/Mean (mmHg): 125 (QS system process) : 86 (QS system process) : 102 (QS system process) Pulse: 97 (QS system process) LaborFlag: Antepartum (QS system process) Datetime: 06/28/2016 10:31 NBP Sys/Lela/Mean (mmHg): 122 (QS system process) : 67 (QS system process) : 90 (QS system process) Pulse: 71 (QS system process) LaborFlag: Antepartum (QS system process) Datetime: 06/28/2016 10:30 Monitor Mode: External US (Smooth Granados, RN) FHR Baseline Rate : 120 (Rucsandra Roberta, RN) Variability: Moderate 6-25 bpm (Rucsandra Roberta, RN) Accelerations: 15X15 (Rucsandra Roberta, RN) Decelerations: None (Rucsandra Roberta, RN) Datetime: 06/28/2016 10:21 I/O Interventions: Up to BR (Smooth Granados, RN) Datetime: 06/28/2016 10:20 Maternal Comments: pt sitting on side of the bed, maternal heart rate palpated and tracing. (Smooth Granados, RN) Datetime: 06/28/2016 10:17 NBP Sys/Lela/Mean (mmHg): 133 (QS system process) : 81 (QS system process) : 97 (QS system process) Pulse: 95 (QS system process) LaborFlag: Antepartum (QS system process) Datetime: 06/28/2016 10:09 Monitor Interventions for FHR: Ultrasound Adjusted (Rucsandra Roberta, RN) Datetime: 06/28/2016 10:04 Monitor Interventions for FHR: Ultrasound Adjusted (Rucsandra Roberta, RN) Datetime: 06/28/2016 10:03 Patient Care Comments: pt standing at bedside (Rucsandra Roberta, RN) Datetime: 06/28/2016 10:00 Monitor Mode: External; Palpation (Rucsandra Roberta, RN) Frequency (min): 4-5 (Rucsandra Roberta, RN) Quality: Mild/Moderate (Rucsandra Roberta, RN) Duration (sec): 60-70 (Rucsandra Roberta, RN) Resting Tone (Palpate): Relaxed (Rucsandra Roberta, RN) Monitor Mode: External US (Rucsandra Roberta, RN) FHR Baseline Rate : 120 (Rucsandra Roberta, RN) Variability: Moderate 6-25 bpm (Rucsandra Roberta, RN) Accelerations: None (Rucsandra Roberta, RN) Decelerations: None (Rucsandra Roberta, RN) Datetime: 06/28/2016 09:56 Monitor Interventions for FHR: Ultrasound Adjusted (Rucsandra Roberta, RN) Datetime: 06/28/2016 09:50 Maternal Comments: pt sitting up on side of the bed (Smooth Granados, JIN) Datetime: 06/28/2016 09:49 Monitor Interventions for FHR: Ultrasound Adjusted (Smooth Granados RN) Datetime: 06/28/2016 09:47 NBP Sys/Lela/Mean (mmHg): 115 (QS system process) : 62 (QS system process) : 80 (QS system process) Pulse: 84 (QS system process) Communication: Call/Page Placed to Provider (Smooth Granados RN) Provider Notified (Name): Called Cipriano Myers CNM. Advised of SVE. States she will be on unit to assess pt. (Smooth Granados RN) LaborFlag: Antepartum (QS system process) Datetime: 06/28/2016 09:44 Dilatation (cm): 4.0 (Smooth Granados RN) Effacement (%): 80 (Smooth Granados RN) Station: -2 (Smooth Granados RN) Exam by: Serene Granados RN (Smooth Granados RN) Datetime: 06/28/2016 08:38 Communication: Call/Page Placed to Provider (Smooth Granados RN) Provider Notified (Name): Called Cipriano Myers CNM. Advised of Gs_Ps, pt complaints and medical history reviewed with CNM. Advised of FHTs, CTX, VS, and SVE. Orders received for pt to ambulate unit for about an hour and recheck cervix. (Smooth Granados RN) Datetime: 06/28/2016 08:36 Maternal Comments: Monitors off for pt to ambulate unit. (Smooth Granados, RN) Datetime: 06/28/2016 08:35 NBP Sys/Lela/Mean (mmHg): 124 (QS system process) : 60 (QS system process) : 86 (QS system process) Pulse: 80 (QS system process) LaborFlag: Antepartum (QS system process) Datetime: 06/28/2016 08:30 Monitor Mode: External; Palpation (Smooth Granados RN) Frequency (min): 4-7 (Rucsandra Roberta, RN) Quality: Mild/Moderate (Rucsandra Roberta, RN) Duration (sec): 60-90 (Rucsandra Granados, RN) Resting Tone (Palpate): Relaxed (Rucsandra Granados, RN) Monitor Mode: External US (Rukaylie Granados, RN) FHR Baseline Rate : 120 (Rucsandra Roberta, RN) Variability: Moderate 6-25 bpm (Rucsandra Roberta, RN) Accelerations: 15X15 (Rucsandra Roberta, RN) Decelerations: None (Rucsandra Roberta, RN) Datetime: 06/28/2016 08:26 Dilatation (cm): 3.0 (Ruabdoulayeandra Granados, RN) Effacement (%): 80 (Ruabdoulayeandra Granados, RN) Station: -2 (Rukaylie Granados, RN) Exam by: Serene Granados RN (Rucsandra Granados, RN) Datetime: 06/28/2016 08:14 I/O Interventions: Up to BR (Ruabdoulayeandra Granados, RN) Datetime: 06/28/2016 08:05 NBP Sys/Lela/Mean (mmHg): 115 (QS system process) : 77 (QS system process) : 89 (QS system process) Pulse: 93 (QS system process) LaborFlag: Antepartum (QS system process) Datetime: 06/28/2016 08:01 I/O Interventions: Popsicle; Clear Liquids Given (Rucsandra Roberta, RN) Datetime: 06/28/2016 08:00 Monitor Mode: External; Palpation (Smooth Granados RN) Frequency (min): 3-7 (Smooth Granados RN) Quality: Mild/Moderate (Smooth Granados RN) Duration (sec): 60-90 (Smooth Granados RN) Resting Tone (Palpate): Relaxed (Smooth Granados RN) Monitor Mode: External US (Smooth Granados RN) FHR Baseline Rate : 120 (Smooth Granados RN) Variability: Moderate 6-25 bpm (Smooth Granados RN) Accelerations: 10X10 (Smooth Granados RN) Decelerations: None (Smooth Granados RN)
[2016-06-28] MEDS ORDERED: ONDANSETRON HCL INJ/PF 4 MG/2 ML SDV IV ONE (20:02)
[2016-06-28] MEDS ORDERED: GLYCOPYRROLATE INJ 0.4 MG/2 ML VIAL ONE (20:04)
[2016-06-28] MEDS ORDERED: CITRIC ACID/SODIUM CITRATE ORAL SOLN 15 ML UDCUP ONE (20:04)
[2016-06-28] MEDS ORDERED: CEFAZOLIN 2 GM/D5W RTU 2 GM/50 ML RTUPB IV ONE (20:05)
[2016-06-28] MEDS ORDERED: ONDANSETRON HCL INJ/PF 4 MG/2 ML SDV ONE ×2 (20:05→20:40)
[2016-06-28] MEDS ORDERED: METHYLERGONOVINE MALEATE INJ/PF 0.2 MG/1 ML AMPULE ONE (20:06)
[2016-06-28] MEDS ORDERED: MISOPROSTOL 0.2 MG TABLET ONE (20:06)
--- NOTE | 2016-06-28 20:24 | L&D Progress Notes ---
PROGRESS NOTES Datetime Report Generated by CPN: 06/28/2016 20:24 PROGRESS NOTE Impression: Arrest of Dilatation/Descent Informed Consent Obtained: Section Delivery Comment: Cervix still and head very molded. Discussed r/b/a of and pt wishes to proceed. FETUS C SIGNATURE: [id number] Signature: with User ID: [email or web address]
[2016-06-28] MEDS ORDERED: KETOROLAC TROMETHAMINE INJ/PF 30 MG/1 ML SDV ONE (20:38)
[2016-06-28] MEDS ORDERED: OXYTOCIN 10 UNIT/ML VIAL ONE (20:38)
[2016-06-28] MEDS ORDERED: MIDAZOLAM 2 MG/2 ML INJ ONE (20:39)
[2016-06-28] MEDS ORDERED: FENTANYL CITRATE INJ/PF 250 MCG/5 ML AMPULE ONE (20:39)
[2016-06-28] MEDS ORDERED: FENTANYL CITRATE INJ/PF 100 MCG/2 ML AMPUL ONE (20:39)
[2016-06-28] MEDS ORDERED: ACETAMINOPHEN 100 ML IV ONE (20:40)
--- NOTE | 2016-06-28 22:05 | Operative Report ---
Operative Report DATE OF SURGERY: 06/28/16 PREOPERATIVE DIAGNOSIS: Intrauterine at 40 weeks and 1 day with arrest of labor POSTOPERATIVE DIAGNOSIS: Arrest of labor OPERATION: Primary low transverse cervical section SURGEON: LISA SMITH ANESTHESIA: Spinal TISSUE REMOVED OR ALTERED: Placenta ESTIMATED BLOOD LOSS: 600 mL INTRAOPERATIVE FINDINGS: Tineo male in vertex presentation with meconium-stained fluid. Apgars 9 and 9. Weight 8 lbs. 11 oz. Normal uterus, tubes, and ovaries. PROCEDURE: After discussing risks benefits and alternatives of the procedure and obtaining informed consent the patient was taken to the operating room where spinal anesthesia was achieved. She was positioned in the dorsal supine position with a leftward tilt. She was then prepped and draped in the usual standard fashion. Pfannenstiel skin incision was made and the abdomen was entered in layers in the usual standard fashion. The C safe knife was used to make a low- transverse hysterotomy incision. The surgeon's hand was entered into the hysterotomy incision and the vertex elevated and delivered. Shoulders and body were delivered easily thereafter. Nasopharynx and oropharynx were bulb suctioned. Cord was clamped and cut. The infant was handed to pediatrics who were present. The placenta was manually extracted. The uterus was cleared of all clots and debris. The hysterotomy incision was closed with 0 Monocryl in a running locked fashion. A second layer closure was performed. Excellent hemostasis was observed. The uterus tubes and ovaries were returned to the peritoneal cavity. The cavity was irrigated with saline and hemostasis was again assured. A layer of Interceed was placed in an inverted T fashion over the lower uterine segment and anterior aspect of the uterus. Peritoneum was closed with 2-0 Vicryl in a pursestring fashion. Rectus muscles were loosely reapproximated with interrupted stitches of 2-0 Vicryl. The subfascial space was inspected and noted to be hemostatic. The fascia was closed with #1 Vicryl. The subcutaneous tissues were irrigated and hemostasis assured. 3-O plain gut was used to reapproximate the subcutaneous space which was quite thick. The skin was closed in a subcuticular fashion with 4-0 Monocryl. An OpSite dressing was applied. The patient was taken to recovery in stable condition. All sponge needle lap and instrument counts were correct correct.
[2016-06-28] MEDS ORDERED: MEASLES,MUMPS&RUBELLA VACC/PF 0.5 ML VIAL SUBCUT PRN (22:14)
[2016-06-28] MEDS ORDERED: RINGERS SOLUTION,LACTATED 1,000 ML IV PRN (22:14)
[2016-06-28] MEDS ORDERED: OXYTOCIN/NORMAL SALINE 1,000 ML IV PRN (22:14)
[2016-06-28] MEDS ORDERED: PROMETHAZINE HCL INJ 25 MG/1 ML VIAL IV PRN (22:14)
[2016-06-28] MEDS ORDERED: SIMETHICONE 80 MG TAB.CHEW PO PRN (22:14)
[2016-06-28] MEDS ORDERED: ACETAMINOPHEN 325 MG TABLET PO PRN (22:14)
[2016-06-28] MEDS ORDERED: DIPH/PERTUSS(ACELL)/TETANUS VAC/PF 0.5 ML SYR (>=10YO) IM PRN (22:14)
[2016-06-28] MEDS ORDERED: HYDROMORPHONE HCL INJ/PF 2 MG/ML AMPULE IV PRN (22:14)
[2016-06-28] MEDS ORDERED: ACETAMINOPHEN 100 ML IV PRN (22:23)
[2016-06-28] MEDS ORDERED: CEFAZOLIN INJ 1 GM VIAL IV PRN (22:53)
--- NOTE | 2016-06-28 22:56 | Delivery Summary ---
Del Sum A-C Datetime Report Generated by CPN: 06/28/2016 22:56 ADMISSION DATA Chief Complaint: Uterine Contractions Indication for Induction: Not Applicable Admission Impression: Term, Intrauterine ; Active Labor Admission Impression Comments: Dilated from 3 to 5 cm after ambulation Admit Provider Comments: G1 Admitted in labor dilation from 3 to 5 cm w dilation Obesity with 38 lb wt gain in History asthma Influenza B in 02'17-treated w Tamiflu See records DELIVERY PERSONNEL Delivery Doctor:: Sena Reddy MD Anesthesiologist:: Gilbert Ferro MD CUSTOMS AND BORDER PROTECTION INSPECTOR:: Liam Yoon CRNA Labor and Delivery Nurse:: Milvia Cornelius RN Neonatal Nurse Practitioner:: LUZ [place] Nursery Nurse:: Anitha Nguyen RN Student Observers:: Linda Vance Motor Installer/FRONT OFFICE MANAGER: Myanima Luna, ESCROW ASSISTANT Motor Installer/FRONT OFFICE MANAGER: ST Felisa Additional Personnel: : Ryder Zaidi CNA MATERNAL INFORMATION Delivery Anesthesia: Spinal Medications After Delivery: Pitocin Bolus-Please Comment; Pitocin Drip 20 Units/1000ml NSS; Methergine 0.2mg IM; Other-Please Comment Meds After Delivery Comment: pitocin bolus per protocol, methergine given by anesthesia, cytotec 1000mcg per rectum Maternal Complications: None LABOR SUMMARY EDC: 07/02/2016 00:00 No. Babies in Womb: 1 Attempted: No Labor Anesthesia: Epidural LABOR INFORMATION Onset of Labor: 06/28/2016 07:23 Oxytocin: Augmentation Group B Beta Strep: negative Steroids Given: None Reason Steroids Not Administered: Not Applicable MEMBRANES Membranes Rupture Method: Spontaneous Rupture of Membranes: 06/28/2016 13:47 Length of Rupture (hr): 7.47 Amniotic Fluid Color: Moderate Meconium Amniotic Fluid Amount: Moderate Amniotic Fluid Odor: Normal STAGES OF LABOR Stage 3 hr: 0 Stage 3 min: 1 Total Time in Labor hr: 13 Total Time in Labor min: 53 VAGINAL DELIVERY Episiotomy: None Laceration Extension: N/A Laceration Type: None Sponge Count Correct: N/A Sharps Count Correct: N/A CSECTION DELIVERY Primary Indication: Arrest of Dilatation CSection Urgency: Non-Scheduled CSection Incidence: Primary Labor: Labor Elective: Nonelective CSection Incision: Lower Uterine Transverse BABY A INFORMATION Infant Delivery Date/Time: 06/28/2016 21:15 Method of Delivery: Born in Route : No : N/A Forceps: N/A Vacuum Extraction: N/A Shoulder Dystocia : No PRESENTATION/POSITION BABY A Presentation: Cephalic Cephalic Presentation: Vertex Vertex Position: Right Occipital Anterior Breech Presentation: N/A PLACENTA INFORMATION BABY A Placenta Delivery Time : 06/28/2016 21:16 Placenta Method of Delivery: Manual Removal Placenta Status: Delivered SCORES BABY A Heart Rate 1 min: >100 bpm Resp Effort 1 min: Good Cry Reflex Irritability 1 min: Cough or Sneeze or Pulls Away Muscle Tone 1 min: Active Motion Color 1 min: Body [place], Extremities Blue SCORE 1 MIN: 9 Heart Rate 5 min: >100 bpm Resp Effort 5 min: Good Cry Reflex Irritability 5 min: Cough or Sneeze or Pulls Away Muscle Tone 5 min: Active Motion Color 5 min: Body [place], Extremities Blue SCORE 5 MIN: 9 Resuscitation Effort 10 min: Chest Compression INFANT INFORMATION BABY A Gestational Age at Delivery: 39.3 Gestational Status: Full Term- 39- 40.6 Weeks Outcome : Liveborn Condition : Stable Sex: Male IDENTIFICATION BABY A Verification Date/Time: 06/28/2016 09:25 ID Band Number: [id number] Mother's Name Verified: Yes RN Verifying : rn enrique Additional Verifying Personnel: whiskey proof reader ertel WEIGHT/LENGTH BABY A Birthweight (gm): 3960 Weight (lb): 8 Infant Weight (oz): 12 Infant Length (in): 19.50 Length (cm): 49.53 CORD INFORMATION BABY A No. Cord Vessels: 3 Nuchal Cord : N/A Cord Blood Taken: Yes-For Storage (Mom's Blood type +) Suction: Mouth ASSESSMENT BABY A Infant Complications: Meconium Physical Findings at Delivery: Caput Succedaneum; Molding of the Head Infant Respirations: Appears Normal Skin to Skin: Yes Skin to Skin Time (min): 20 Compressor Assembler/ALS Called : No Infant Care By: JIN Nguyen Transferred To: Nursery BABY B INFORMATION : N/A SIGNATURES : I personally evaluated and examined the patient in conjunction with the MLP and agree with the assessment, treatment plan and disposition.
[2016-06-28] MEDS ORDERED: MORPHINE SULFATE 10 MG/ML INJ ONE (23:01)
[2016-06-29] MEDS ORDERED: CEFAZOLIN 2 GM/D5W RTU 50 ML IV SCH
--- NOTE | 2016-06-29 01:10 | Admission Physical ---
Datetime Report Generated by CPN: 06/29/2016 01:10 CURRENT ADMISSION Chief Complaint: Uterine Contractions Indication for Induction: Not Applicable Admit Impression- Other: Dilated from 3 to 5 cm after ambulation Admit Plan: Admit to Unit; Initiate Labor Protocol ALLERGIES Medication Allergies: No Medication Allergies: No Known Allergies (06/28/2016) Medication Allergies: N/A Latex: No Latex Allergies Food Allergies: N/A Environmental Allergies: N/a OBSTETRICAL HISTORY EDC: 07/02/2016 00:00 : 1 Para: 0 Term: 0 : 0 SAB: 0 IAB: 0 Ectopic: 0 Livin Cesareans: 0 VBACs: 0 Multiple Births: 0 Gestational Diabetes: No Rh Sensitization: No Incompetent Cervix: No YUSEF: No Infertility: No ART Treatment: No Uterine Anomaly: No IUGR: No Hx Previous C/S: No Macrosomia: No Hx Loss/Stillborn: No PIH: No Hx : No Placenta Previa/Abruption: No Depression/PP Depression: No PTL/PROM: No Post Hemorrhage: No Current Procedures: Ultrasound Obstetrical History Comments: G1 - current SEE RECORDS Alcohol: No Marijuana : No Cocaine: No Other Illicit Drugs: No Cigarettes: Never Smoker. 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 Surgery: No Heart Disease: No Hosp/Surgery: No Autoimmune Disorder: No Anesthetic Complications: No Kidney Disease: No Abnormal Pap Smear: Yes Neuro/Epilepsy: No Psychiatric Disorders: No Other Medical Diseases: No Hepatitis/Liver Disease: No Significant Family History: No Varicosities/Phlebitis: No Trauma/Violence : No Thyroid Dysfunction: No Medical History Comments: Abnormal Pap - 2010 INFECTIOUS HISTORY Gonorrhea: No Genital Herpes: No Chlamydia: No Tuberculosis: No Syphilis: No Hepatitis: No HIV/AIDS Exposure: No Rash or Viral Illness: No HPV: Yes 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 PHYSICAL EXAM General: Normal HEENT: Normal Neurologic: Normal Thyroid: Deferred Heart: Normal Lungs: Normal Breast: Deferred Back: Normal Abdomen: Normal Genitourinary Exam: Normal DTRs: Normal Pelvic Type: Adequate Physical Exam Comments: Gravid Not proven Vital Signs: Reviewed Details Vital Signs: Elevated in pain MEMBRANES Membranes: Intact FETUS A EGA: 39.3 Monitoring: External US FHR- Baseline: 120 Variability: Moderate 6-25bpm Accelerations: 15X15 FHR Category: Category I Presentation: Vertex Admit Comment: G1 Admitted in labor dilation from 3 to 5 cm w dilation Obesity with 38 lb wt gain in History asthma Influenza B in 02'17-treated w Tamiflu See records PLANS FOR LABOR AND DELIVERY Labor and Delivery: Plan Pain Management: None Feeding Preference: Both Benefit of Breast Feed Discussed: Yes Circumcision: Yes INFORMED CONSENT Informed Consent Obtained: Section Delivery Assignment: Sena Reddy MD Signature: with User ID: Annabel : with User ID: Annabel : I personally evaluated and examined the patient in conjunction with the MLP and agree with the assessment, treatment plan and disposition.
[2016-06-29] MEDS: OXYCODONE-ACETAMINOPHEN 5-325 MG TABLET PO PRN ×6 (02:37→20:15)
[2016-06-29 06:56] LABS: HEMATOCRIT 26.6 % (36.0-47.0); HEMOGLOBIN 8.8 g/dL (12.0-15.5); HGB HCT DIFFERENCE -0.2; MEAN CORPUSCULAR HEMOGLOBIN 27.1 pg (27.0-33.4); MEAN CORPUSCULAR HGB CONC 33.1 g/dL (32.0-36.0); MEAN CORPUSCULAR VOLUME 82 fl (80-97); RED BLOOD COUNT 3.25 10^6/uL (3.72-5.28); RED CELL DISTRIBUTION WIDTH 14.6 % (11.5-14.0); WHITE BLOOD COUNT 14.5 10^3/uL (4.0-10.5)
--- NOTE | 2016-06-29 07:01 | L&D Flow Sheet ---
LD Flowsheet Datetime Report Generated by CPN: 06/29/2016 07:00 Datetime: 06/29/2016 00:00 NBP Sys/Lela/Mean (mmHg): 149 (QS system process) : 76 (QS system process) : 106 (QS system process) Pulse: 91 (QS system process) Respirations: 16 (Milvia Cornelius RN) Temperature (F): 99.5 (Milvia Cornelius RN) Temperature (C): 37.5 (QS system process) Temperature Route: Oral (Milvia Cornelius RN) Pain Scale: 0 (Milvia Cornelius RN) Pain Presence: None/Denies (Milvia Cornelius RN) Pain Type: N/A (Milvia Cornelius RN) Datetime: 06/28/2016 23:54 NBP Sys/Lela/Mean (mmHg): 144 (QS system process) : 75 (QS system process) : 102 (QS system process) Pulse: 90 (QS system process) Datetime: 06/28/2016 23:50 Pulse: 89 (QS system process) SpO2 (%): 97 (QS system process) Datetime: 06/28/2016 23:45 NBP Sys/Lela/Mean (mmHg): 138 (QS system process) : 63 (QS system process) : 91 (QS system process) Pulse: 83 (QS system process) Pulse: 82 (QS system process) Respirations: 20 (Milvia Cornelius RN) SpO2 (%): 97 (QS system process) Datetime: 06/28/2016 23:40 Pulse: 92 (QS system process) SpO2 (%): 97 (QS system process) Datetime: 06/28/2016 23:34 Pulse: 91 (QS system process) SpO2 (%): 98 (QS system process) Datetime: 06/28/2016 23:30 NBP Sys/Lela/Mean (mmHg): 147 (QS system process) : 71 (QS system process) : 94 (QS system process) Pulse: 88 (QS system process) SpO2 (%): 92 (QS system process) Datetime: 06/28/2016 23:29 Pulse: 90 (QS system process) SpO2 (%): 97 (QS system process) Datetime: 06/28/2016 23:24 Pulse: 85 (QS system process) SpO2 (%): 98 (QS system process) Datetime: 06/28/2016 23:19 Pulse: 86 (QS system process) SpO2 (%): 97 (QS system process) Datetime: 06/28/2016 23:14 Pulse: 86 (QS system process) SpO2 (%): 97 (QS system process) Pain Scale: 3 (Milvia Cornelius RN) Pain Presence: Intermittent (Milvia Cornelius RN) Pain Type: Sharp (Milvia Cornelius RN) Pain Location: Abdomen (Milvia Cornelius RN) Pain Relief Measures: Pain Medication Given (Milvia Cornelius RN) Datetime: 06/28/2016 23:09 Pulse: 83 (QS system process) SpO2 (%): 97 (QS system process) Datetime: 06/28/2016 23:04 Pulse: 82 (QS system process) SpO2 (%): 99 (QS system process) Datetime: 06/28/2016 23:01 NBP Sys/Lela/Mean (mmHg): 135 (QS system process) : 77 (QS system process) : 100 (QS system process) Pulse: 78 (QS system process) Respirations: 20 (Milvia Cornelius RN) Pain Scale: 3 (Milvia Cornelius RN) Pain Presence: Intermittent (Milvia Cornelius RN) Pain Type: Sharp (Milvia Cornelius RN) Pain Location: Abdomen (Milvia Cornelius RN) Pain Relief Measures: Pain Medication Given (Milvia Cornelius RN) Datetime: 06/28/2016 23:00 Pulse: 81 (QS system process) SpO2 (%): 85 (QS system process) Datetime: 06/28/2016 22:59 Pulse: 77 (QS system process) SpO2 (%): 98 (QS system process) Datetime: 06/28/2016 22:54 Pulse: 80 (QS system process) SpO2 (%): 99 (QS system process) Datetime: 06/28/2016 22:49 Pulse: 80 (QS system process) SpO2 (%): 98 (QS system process) Datetime: 06/28/2016 22:44 Pulse: 85 (QS system process) SpO2 (%): 100 (QS system process) Datetime: 06/28/2016 22:39 Pulse: 81 (QS system process) SpO2 (%): 100 (QS system process) Datetime: 06/28/2016 22:34 Pulse: 82 (QS system process) SpO2 (%): 100 (QS system process) Datetime: 06/28/2016 22:31 NBP Sys/Lela/Mean (mmHg): 149 (QS system process) : 79 (QS system process) : 102 (QS system process) Pulse: 81 (QS system process) Datetime: 06/28/2016 22:29 Pulse: 84 (QS system process) SpO2 (%): 100 (QS system process) Datetime: 06/28/2016 22:24 Pulse: 86 (QS system process) SpO2 (%): 100 (QS system process) Datetime: 06/28/2016 22:19 Pulse: 87 (QS system process) SpO2 (%): 100 (QS system process) Datetime: 06/28/2016 22:14 Pulse: 92 (QS system process) SpO2 (%): 100 (QS system process) Datetime: 06/28/2016 22:10 NBP Sys/Lela/Mean (mmHg): 103 (QS system process) : 59 (QS system process) : 79 (QS system process) Pulse: 96 (QS system process) Datetime: 06/28/2016 22:09 Pulse: 93 (QS system process) SpO2 (%): 100 (QS system process) Datetime: 06/28/2016 22:06 NBP Sys/Lela/Mean (mmHg): 115 (QS system process) : 62 (QS system process) : 79 (QS system process) Pulse: 92 (QS system process) Respirations: 16 (Sedjenan Vance, SN) Temperature (F): 98.7 (Sedjenan Vance, SN) Temperature (C): 37.1 (QS system process) Temperature Route: Oral (Sedjenan Vance, SN) Pain Scale: 0 (Sedjenan Vance, SN) Pain Presence: None/Denies (Sedjenan Vance, SN) Pain Type: N/A (Sedjenan Vance, SN) Datetime: 06/28/2016 22:04 Pulse: 86 (QS system process) SpO2 (%): 100 (QS system process) Datetime: 06/28/2016 22:03 NBP Sys/Lela/Mean (mmHg): 195 (QS system process) : 128 (QS system process) : 150 (QS system process) Pulse: 162 (QS system process) Datetime: 06/28/2016 21:59 Pulse: 94 (QS system process) SpO2 (%): 98 (QS system process) Datetime: 06/28/2016 20:58 Stage of : Recovery (Sedjenan Vance, SN) Datetime: 06/28/2016 20:52 Additional Nursing Comments: TO OR FOR PRIMARY C/s (Milvia Kossmann, RN) Datetime: 06/28/2016 20:50 Comments: iupc removed, catheter intact (Milvia Kossmann, RN) Datetime: 06/28/2016 20:46 NBP Sys/Lela/Mean (mmHg): 140 (QS system process) : 77 (QS system process) : 98 (QS system process) Pulse: 85 (QS system process) Respirations: 16 (Milvia Cornelius RN) LaborFlag: Antepartum (QS system process) Datetime: 06/28/2016 20:45 Monitor Mode: Internal (Milvia Cornelius RN) Frequency (min): 1.5-3 (Milvia Cornelius RN) Duration (sec): 50-90 (Milvia Cornelius RN) Resting Tone IUP (mmHg): 25 (Milvia Cornelius, RN) Contraction Comments: intensity: 50-55, mvu:130 (Milvia Cornelius, RN) Monitor Mode: External US (Milvia Cornelius RN) FHR Baseline Rate : 130 (Milvia Cornelius, RN) Variability: Minimal - Undetectable to <=5 bpm (Milvia Cornelius, RN) Decelerations: None (Milvia Cornelius RN) Datetime: 06/28/2016 20:35 Antibiotics: Ancef IV (Gm) @ 2 (Michelle Antony RN) Antiemetics/Antacids: Bicitra 15 ml PO (Michelle Antony RN) Datetime: 06/28/2016 20:31 Pulse: 92 (QS system process) SpO2 (%): 99 (QS system process) LaborFlag: Antepartum (QS system process) Datetime: 06/28/2016 20:30 Monitor Mode: Internal (Milvia Cornelius RN) Contraction Comments: unable to determine, iupc malfunctioned (Milvia Cornelius RN) Monitor Mode: External US (Milvia Cornelius RN) FHR Baseline Rate : 125 (Milvia Cornelius RN) Variability: Minimal - Undetectable to <=5 bpm (Milvia Cornelius RN) Decelerations: None (Milvia Cornelius RN) Additional Nursing Comments: consents signed (Beth Soliman RN) Datetime: 06/28/2016 20:26 Pulse: 82 (QS system process) SpO2 (%): 100 (QS system process) LaborFlag: Antepartum (QS system process) Datetime: 06/28/2016 20:21 Pulse: 84 (QS system process) SpO2 (%): 100 (QS system process) LaborFlag: Antepartum (QS system process) Datetime: 06/28/2016 20:18 NBP Sys/Lela/Mean (mmHg): 117 (QS system process) : 61 (QS system process) : 83 (QS system process) Pulse: 81 (QS system process) Pulse: 75 (QS system process) SpO2 (%): 94 (QS system process) LaborFlag: Antepartum (QS system process) Datetime: 06/28/2016 20:16 Pulse: 82 (QS system process) SpO2 (%): 99 (QS system process) LaborFlag: Antepartum (QS system process) Datetime: 06/28/2016 20:15 Monitor Mode: Internal (Milvia Cornelius RN) Frequency (min): 1.5-4 (Milvia Cornelius RN) Duration (sec): 60-100 (Milvia Cornelius RN) Resting Tone IUP (mmHg): 30 (Milvia Cornelius RN) Contraction Comments: intensity: 55-85 , mvu= 245 (Milvia Cornelius RN) Monitor Mode: External US (Milvia Cornelius RN) FHR Baseline Rate : 130 (Milvia Cornelius RN) Variability: Minimal - Undetectable to <=5 bpm (Milvia Cornelius RN) Accelerations: 10X10 (Milvia Cornelius RN) Decelerations: None (Milvia Cornelius RN) Communication Comments: DR. SMITH AT BEDSIDE DISCUSSING POC. NO SVE, ARREST OF DILITATION. DISCUSSED OPTIONS. PRIMARY CSECTION CALLED. APPROPRIATE PERSONNEL NOTIFIED. (Milvia Cornelius RN) Datetime: 06/28/2016 20:14 Vaginal Exam Comments: NO CHANGE PER DR SMITH (Milvia Cornelius RN) Datetime: 06/28/2016 20:11 Pulse: 84 (QS system process) SpO2 (%): 98 (QS system process) Antiemetics/Antacids: Zofran IV (mg) @ 8 (Milvia Cornelius RN) LaborFlag: Antepartum (QS system process) Datetime: 06/28/2016 20:06 Pulse: 82 (QS system process) SpO2 (%): 97 (QS system process) LaborFlag: Antepartum (QS system process) Datetime: 06/28/2016 20:02 NBP Sys/Lela/Mean (mmHg): 132 (QS system process) : 72 (QS system process) : 96 (QS system process) Pulse: 78 (QS system process) LaborFlag: Antepartum (QS system process) Datetime: 06/28/2016 20:01 Pulse: 81 (QS system process) SpO2 (%): 99 (QS system process) LaborFlag: Antepartum (QS system process) Datetime: 06/28/2016 20:00 Monitor Mode: Internal (Milvia Kossmann, RN) Frequency (min): 1.5-3 (Milvia Kossmann, RN) Duration (sec): 60-80 (Milvia Kossmann, RN) Resting Tone IUP (mmHg): 30 (Milvia Kossmann, RN) Contraction Comments: intensity: 50-70, mvu= 210 (Milvia Kossmann, RN) Monitor Mode: External US (Milvia Kossmann, RN) FHR Baseline Rate : 125 (Milvia Kossmann, RN) Variability: Moderate 6-25 bpm (Milvia Kossmann, RN) Decelerations: Prolonged (Milvia Kossmann, RN) Datetime: 06/28/2016 19:56 Pulse: 82 (QS system process) SpO2 (%): 98 (QS system process) LaborFlag: Antepartum (QS system process) Datetime: 06/28/2016 19:52 Pulse: 91 (QS system process) SpO2 (%): 93 (QS system process) Exam by: Floyd Chappell RN (Milvia Cornelius RN) Vaginal Exam Comments: No change (Milvia Cornelius RN) LaborFlag: Antepartum (QS system process) Datetime: 06/28/2016 19:51 Pulse: 85 (QS system process) SpO2 (%): 96 (QS system process) Comments: oxygen turned on but not applied due to return to baseline (Milvia Cornelius RN) LaborFlag: Antepartum (QS system process) Datetime: 06/28/2016 19:50 Pitocin (milliunit): Pitocin Discontinued (Milvia Cornelius RN) Patient Position/Activity: Left Lateral (Milvia Cornelius RN) Datetime: 06/28/2016 19:49 IV/Blood Work: IV Bolus Started (Milvia Cornelius, RN) Patient Position/Activity: Right Lateral (Milvia Adryan, RN) Datetime: 06/28/2016 19:46 NBP Sys/Lela/Mean (mmHg): 132 (QS system process) : 79 (QS system process) : 100 (QS system process) Pulse: 99 (QS system process) Patient Position/Activity: Right Lateral; Peanut Ball (Milvia Mendezfelicita, RN) LaborFlag: Antepartum (QS system process) Datetime: 06/28/2016 19:45 Monitor Mode: Internal (Milvia Cornelius, JIN) Frequency (min): 1-2 (Milvia Cornelius RN) Duration (sec): 40-90 (Milvia Cornelius RN) Resting Tone IUP (mmHg): 35 (Milvia Cornelius, RN) Contraction Comments: intensity: 50-60, mvu= 155 (Milvia Cornelius, RN) Monitor Mode: External US (Milvia Cornelius RN) FHR Baseline Rate : 125 (Milvia Cornelius, JIN) Variability: Moderate 6-25 bpm (Milvia Cornelius, RN) Accelerations: 15X15 (Milvia Cornelius, JIN) Decelerations: None (Milvia Cornelius RN) Datetime: 06/28/2016 19:35 Level of Consciousness: Fully Conscious (SN Sarah) DTR's/Clonus: DTRs 2+; No Clonus (SN Sarah) Headache: Denies (SN Sarah) Breath Sounds, Left: Clear and Equal (SN Sarah) Breath Sounds, Right: Clear and Equal (SN Sarah) Nausea/Vomiting: Present (Annotations: pt repositioned and will discuss with provider.) (SN Sarah) RUQ Epigastric Pain: Denies (SN Sarah) Pitocin (milliunit): Pitocin Remains (milliunits) @; Pitocin 20 Units in 1000ml NS (Annotations: 8mil/min) (Mathew Vance ) Datetime: 06/28/2016 19:32 NBP Sys/Lela/Mean (mmHg): 134 (QS system process) : 70 (QS system process) : 95 (QS system process) Pulse: 77 (QS system process) LaborFlag: Antepartum (QS system process) Datetime: 06/28/2016 19:30 Monitor Mode: Internal (Milvia Cornelius RN) Frequency (min): 1.5-2 (Milvia Cornelius, RN) Duration (sec): 50-60 (Milvia Cornelius, RN) Resting Tone IUP (mmHg): 35 (Milvia Cornelius, RN) Contraction Comments: intensity:55-60, mvu= 130 (Milvia Cornelius, RN) Monitor Mode: External US (Milvia Cornelius, RN) FHR Baseline Rate : 125 (Milvia Cornelius, RN) Variability: Moderate 6-25 bpm (Milvia Cornelius, RN) Accelerations: 15X15 (Milvia Cornelius, RN) Decelerations: None (Milvia Cornelius RN) Datetime: 06/28/2016 19:17 NBP Sys/Lela/Mean (mmHg): 131 (QS system process) : 71 (QS system process) : 93 (QS system process) Pulse: 84 (QS system process) LaborFlag: Antepartum (QS system process) Datetime: 06/28/2016 19:15 Monitor Mode: Internal (Milvia Cornelius RN) Frequency (min): 1.5-3 (Milvia Cornelius RN) Duration (sec): 50-80 (Milvia Cornelius RN) Resting Tone (Palpate): Relaxed (Milvia Cornelius RN) Contraction Comments: [id number]-[id number], resting 25-30, too=903 (Milvia Cornelius RN) Monitor Mode: External US (Milvia Cornelius RN) FHR Baseline Rate : 130 (Milvia Cornelius RN) Variability: Minimal - Undetectable to <=5 bpm (Milvia Cornelius RN) Accelerations: 10X10 (Milvia Cornelius, RN) Decelerations: Late (Milvia Mendezfelicita, RN) Datetime: 06/28/2016 19:14 Pitocin (milliunit): Pitocin Remains (milliunits) @ (Annotations: 8 ) (Smooth Granados RN) Communication: Report Given to @ Floyd Chappell RN. Care relinquished (Smooth Granados RN) Datetime: 06/28/2016 19:01 NBP Sys/Lela/Mean (mmHg): 114 (QS system process) : 55 (QS system process) : 77 (QS system process) Pulse: 73 (QS system process) LaborFlag: Antepartum (QS system process) Datetime: 06/28/2016 19:00 Monitor Mode: Internal; Palpation (Smooth Granados RN) Frequency (min): 1.5-2.5 (Smooth Granados RN) Quality: Moderate to Strong (Smooth Granados RN) Duration (sec): 50-70 (Smooth Granados RN) Resting Tone (Palpate): Relaxed (Smooth Granados RN) Contraction Comments: intensity: 60-75; resting tone: 25-30; RSZ=326 (Smooth Granados RN) Monitor Mode: External US (Smooth Granados RN) FHR Baseline Rate : 125 (Smooth Granados RN) Variability: Moderate 6-25 bpm (Smooth Granados RN) Accelerations: None (Smooth Granados RN) Decelerations: None (Smooth Granados RN)
--- NOTE | 2016-06-29 09:00 | PDOC PROGRESS REPORT ---
Subjective-OB Subjective: Post Delivery Day: 25 year old. Denies any needs at this time Physical Exam (OB) Vital Signs: Temp Pulse Resp BP Pulse Ox 98.8 F 100 18 121/66 100 06/29/16 07:00 06/29/16 07:00 06/29/16 07:00 06/29/16 07:00 06/29/16 07:00 Intake & Output 06/28/16 06/29/16 06/30/16 06:59 06:59 06:59 Intake Total 450 Output Total 2250 Balance -1800 Weight 121.15 kg - Dressing Removed: No - honeycomb op site Incision: Dressing - Lochia Lochia Amount: Scant < 10 ml Lochia Color: Rubra/Red - Abdomen Description: Tender, Soft Hernia Present: No Bowel Sounds: Normoactive Flatus Presence: Absent Stool: No Fundal Description: Firm, Midline Fundal Height: u/u - u/2 Objective-Diagnostic Laboratory: 06/29/16 06:38 06/28/16 06/28/16 06/29/16 11:34 11:34 06:38 WBC 14.2 H 14.5 H RBC 3.87 3.25 L Hgb 10.6 L 8.8 L Hct 32.0 L 26.6 L MCV 83 82 MCH 27.5 27.1 MCHC 33.2 33.1 RDW 14.1 H 14.6 H Plt Count 301 246 Seg Neutrophils % 84.8 H Lymphocytes % 10.3 L Monocytes % 4.7 Eosinophils % 0.1 Basophils % 0.1 Absolute Neutrophils 12.0 H Absolute Lymphocytes 1.5 Absolute Monocytes 0.7 Absolute Eosinophils 0.0 Absolute Basophils 0.0 Blood Type A POSITIVE Antibody Screen NEGATIVE
[2016-06-29] MEDS: CEFAZOLIN 2 GM/D5W RTU 2 GM/50 ML RTUPB IV SCH ×2 (09:25→17:18)
[2016-06-29] MEDS: DOCUSATE SODIUM 100 MG CAPSULE PO SCH ×2 (09:26→17:18)
[2016-06-29] MEDS: PRENATAL VITAMIN W-O CA NO5/FE FUMARATE/FA CAPSULE PO SCH (09:26)
--- NOTE | 2016-06-29 18:00 | L&D Current Admission ---
Current Admit Datetime Report Generated by CPN: 06/29/2016 18:00 ADMISSION INFORMATION Person(s) Allowed during Admit: family (06/28/2016 11:00:Smooth Granados RN) Current Admit Date/Time: 06/28/2016 11:00 (06/28/2016 11:00:Smooth Granados RN) Reason for Admission: Onset of Labor (06/28/2016 11:00:Smooth Granados RN) Chief Complaint: Contractions (06/28/2016 11:00:Milvia Cornelius RN) Medications During : Vitamin (06/28/2016 11:00:Milvia Cornelius RN) EGA per Dates: 39.3 (06/28/2016 11:00:QS system process) Method of Arrival: Wheelchair (06/28/2016 11:00:Smooth Granados RN) Admitted From: Home (06/28/2016 11:00:Smooth Granados RN) Reason for Induction: Not Applicable (06/28/2016 11:00:Smooth Granados RN) Records Available: Yes (06/28/2016 11:00:Smooth Granados RN) General Admission Information: Reviewed (06/28/2016 11:00:Smooth Granados RN) General Admission Reviewed By: Arvind Hines (06/28/2016 11:00:Milvia Cornelius RN) BELONGINGS/ADVANCED DIRECTIVES Other Belongings: see valuables consent form (06/28/2016 11:00:Smooth Granados RN) Disposition of Belongings: Kept with Patient (06/28/2016 11:00:Smooth Granados RN) Advance Direct for Healthcare: No, and Wants No Information (06/28/2016 11:00:Smooth Granados RN) Durable Power of Bender Helper: No (06/28/2016 11:00:Smooth Granados RN) Living Will: No (06/28/2016 11:00:Smooth Granados RN) Organ Donor: Yes (06/28/2016 11:00:Smooth Granados RN) Pt Rights Information Given: Yes (06/28/2016 11:00:Smooth Granados RN) Pt Understands Pt Rights: Yes (06/28/2016 11:00:Smooth Granados RN) LEARNING ASSESSMENT Knowledge Level: Understands L_D Process (06/28/2016 11:00:Smooth Granados RN) Barriers to Learning: None (06/28/2016 11:00:Smooth Granados RN) Learning Readiness: Motivated (06/28/2016 11:00:Smooth Granados RN) Learns Best By: 1 to 1 Instruction; Reading; Videos; Group Discussion; Demonstration (06/28/2016 11:00:Smooth Granados RN) Learning Needs: Labor and Delivery Process; Pain Management; Symptoms to Report; Treatment Plan; Medication; Diagnosis; Nutrition; Equipment; Infant Care (06/28/2016 11:00:Smooth Granados RN) DOMESTIC VIOLANCE SCREENING Dom Viol Threatened/Hurt: No (06/28/2016 11:00:Smooth Granados RN) Hx of Abuse/Neglect past 2yrs: No (06/28/2016 11:00:Smooth Granados RN) Feel Unsafe Going Home: No (06/28/2016 11:00:Smooth Granados RN) Addt'l Observ Indicating Abuse: No (06/28/2016 11:00:Smooth Granados RN) Reason Unable to Complete Screen: N/A, Screen Completed (06/28/2016 11:00:Smooth Granados RN) Considered Personal Harm/Suicide: No (06/28/2016 11:00:Smooth Granados RN) NUTRITIONAL/FUNCTIONAL SCREENING Problem with Appetite >5 Days: No (06/28/2016 11:00:Smooth Granados RN) Chew/Swallow Difficulties: No (06/28/2016 11:00:Smooth Granados RN) Inappropriate Wt Gain/Loss: No (06/28/2016 11:00:Smooth Granados RN) Presence Skin Breakdown/Ulcer: No (06/28/2016 11:00:Smooth Granados RN) Special Diet: No (06/28/2016 11:00:Smooth Granados RN) Pt Requests Diagnostic Imaging Manager Visit: No (06/28/2016 11:00:Smooth Granados RN) Hx of Any of the Following?: N/A (06/28/2016 11:00:Smooth Granados RN) New Diagnosis of: N/A (06/28/2016 11:00:Smooth Granados RN) Requires Assist w/Ambulation: No (06/28/2016 11:00:Smooth Granados RN) Uses Assist Device to Ambulate: No (06/28/2016 11:00:Smooth Granados RN) Pt Requires Help w/ADL's: No (06/28/2016 11:00:Smooth Granados RN)
--- NOTE | 2016-06-29 18:01 | L&D General Admission ---
General Admit Datetime Report Generated by CPN: 06/29/2016 18:00 INFORMATION Patient Age: 25 (05/01/2016 16:39:QS system process) EDC: 07/02/2016 00:00 (06/28/2016 03:02:Sena Andrade RN) : 1 (06/28/2016 03:02:Sena Andrade RN) Para: 0 (06/28/2016 03:02:Sena Andrade RN) Term: 0 (06/28/2016 03:02:Smooth Granados RN) : 0 (06/28/2016 03:02:Smooth Granados RN) Spontaneous Abortions: 0 (06/28/2016 03:02:Smooth Granados RN) Induced Abortions: 0 (06/28/2016 03:02:Smooth Granados RN) Livin (06/28/2016 03:02:Smooth Granados RN) Cesareans: 0 (06/28/2016 03:02:Smooth Granados RN) VBACs: 0 (06/28/2016 03:02:Smooth Granados RN) Ectopic: 0 (06/28/2016 03:02:Smooth Granados RN) Multiple Births: 0 (06/28/2016 03:02:Smooth Granados RN) Baby, Number in Womb: 1 (06/28/2016 03:02:Smooth Granados RN) CARE Primary Returns Clerk: [facility] (06/28/2016 03:02:Sena Andrade RN) Month of 1st Visit: 7 weeks (06/28/2016 03:02:Smooth Granados RN) Adequate Care: Yes (06/28/2016 03:02:Sena Andrade RN) Height (in): 67 (06/29/2016 01:08:QS system process) ALLERGIES Medication Allergy: No (06/28/2016 03:02:Sena Andrade RN) Medication Allergies: No Known Allergies (06/28/2016) (06/28/2016 03:11:QS system process) Latex Allergy: No Latex Allergies (06/28/2016 03:02:Sena Andrade RN) Food Allergies: N/A (06/28/2016 03:02:Sena Andrade RN) Environmental Allergies: N/a (06/28/2016 03:02:Sena Andrade RN) COMMUNICATION Primary Language: Hebrew (06/28/2016 03:02:Sena Andrade RN) Medical Tx Preferred Language: Hebrew (06/28/2016 03:02:Sena Andrade RN) Communication Barrier(s): None (06/28/2016 03:02:Sena Andrade RN) DEMOGRAPHICS Address: [address] [place] [id number] (05/01/2016 16:39:QS system process) Zipcode: [address] (05/01/2016 16:39:QS system process) Home (05/16/2016 08:19:QS system process) N: [phone] (05/01/2016 16:39:QS system process) Next of Kin Name: BOBBY PEREZ (05/01/2016 16:39:QS system process) Next of Kin (05/01/2016 16:39:QS system process) Next of Kin Relationship: SPO (05/01/2016 16:39:QS system process) Date of : 1990 (05/01/2016 16:39:QS system process) Marital Status: Single (05/01/2016 16:39:QS system process) Sex: Female (05/01/2016 16:39:QS system process) Race: (05/01/2016 16:39:QS system process) Ethnicity: Non- or (05/01/2016 16:39:QS system process) Scientology: Voodoo (05/01/2016 16:39:QS system process) FOB Involved: Yes (06/28/2016 03:02:Sena Andrade RN) Father of Baby Name: Bobby (06/28/2016 03:02:Sena Andrade RN) DRUG AND ALCOHOL USE Alcohol: No (06/28/2016 03:02:Sena Andrade RN) Cigarettes: Never Smoker. [id number] (06/28/2016 03:02:Sena Andrade RN) Marijuana: No (06/28/2016 03:02:Sena Andrade RN) Cocaine: No (06/28/2016 03:02:Sena Andrade RN) Other Illicit Drugs: No (06/28/2016 03:02:Sena Andrade RN) VACCINE HISTORY Influenza Vaccine: Yes (06/28/2016 03:02:Sena Andrade RN) Pneumococcal Vaccine: No (06/28/2016 03:02:Sena Andrade RN) Tetanus Vaccine: Yes (06/28/2016 03:02:Sena Andrade RN) Tdap Vaccine: Yes (06/28/2016 03:02:Sena Andrade RN) Hepatitis B Vaccine: Uncertain (06/28/2016 03:02:Sena Andrade RN) Furniture Lumber Production Worker: [facility] (06/28/2016 03:02:Smooth Granados RN) Feeding Preference: Both (06/28/2016 03:02:Sena Andrade RN) Benefit of Breast Feed Discussed: Yes (06/28/2016 03:02:Sena Andrade RN) Circumcision: Yes (06/28/2016 03:02:Sena Andrade RN) Classes Attended: Yes (06/28/2016 03:02:Sena Andrade RN) Tubal Ligation: No (06/28/2016 03:02:Sena Andrade RN) Tubal Authorization Signed: N/A (06/28/2016 03:02:Sena Andrade RN) Consent: N/A (06/28/2016 03:02:Sena Andrade RN) Consent Signed: N/A (06/28/2016 03:02:Sena Andrade RN) Pain Management Plans: None (06/28/2016 03:02:Sena Andrade RN) Plans for Labor and Delivery: Plan (06/28/2016 03:02:Sena Andrade RN) Support Person: Bobby Perez (06/28/2016 03:02:Sena Andrade RN) Support Person Relationship: (06/28/2016 03:02:Sena Andrade RN) Cultural/Spritual Practice: No (06/28/2016 03:02:Sena Andrade RN) Spir/Cult Dietary Needs: No (06/28/2016 03:02:Sena Andrade RN) LIVING SITUATION/DISCHARGE PLAN Living Arrangements: House (06/28/2016 03:02:Sena Andrade RN) Adequate Access to:: Electric; Heat; Refrigeration; Plumbing/Running water; Phone; Transportation (06/28/2016 03:02:Sena Andrade RN) WIC Program: No (06/28/2016 03:02:Sena Andrade RN) Discharge Carry Out Clerk And Shelf Stocker Person: Bobby Perez (06/28/2016 03:02:Sena Andrade RN) Person to Help after Discharge: Bobby Perez (06/28/2016 03:02:Sena Andrade RN) Currently Using Commun Resources: No (06/28/2016 03:02:Sena Andrade RN) Outside Agency/Shake Backboard Notcher: Valeria (06/28/2016 03:02:Sena Andrade RN) Car Seat for Discharge: Yes (06/28/2016 03:02:Sena Andrade RN) Adoption Requested: No (06/28/2016 03:02:Sena Andrade RN) Pt Contact w/ Post : N/A (06/28/2016 03:02:Sena Andrade RN) LABS Blood Type: A Positive (06/28/2016 03:02:Eunice Young RN) Antibody Screen: negative (06/28/2016 03:02:Eunice Young RN) Hemoglobin: 8.8 L (06/29/2016 06:38:QS system process) Hematocrit: 26.6 L (06/29/2016 06:38:QS system process) MCV: 82 (06/29/2016 06:38:QS system process) Group Beta Strep: negative (06/28/2016 03:02:Eunice Young RN) Gonorrhea: Negative (06/28/2016 03:02:Eunice Young RN) Chlamydia: Negative (06/28/2016 03:02:Eunice Young RN) RPR/VDRL: Nonreactive (06/28/2016 03:02:Enuice Young RN) HIV Results: non-reactive (06/28/2016 03:02:Eunice Young RN) Hepatitis B: Negative (06/28/2016 03:02:Eunice Young RN) Rubella: Non-Immune (06/28/2016 03:02:Eunice Young RN) OB/PREVIOUS HISTORY Current Procedures: Ultrasound (06/28/2016 03:02:Sena Andrade RN) History of Previous : No (06/28/2016 03:02:Sena Andrade RN) History of Gestational Diabetes: No (06/28/2016 03:02:Sena Andrade RN) History of PIH: No (06/28/2016 03:02:Sena Andrade RN) History of Incompetent Cervix: No (06/28/2016 03:02:Sena Andrade RN) History of Placenta Previa/Abrup: No (06/28/2016 03:02:Sena Andrade RN) History of Macrosomia: No (06/28/2016 03:02:Sena Andrade RN) History of IUGR: No (06/28/2016 03:02:Sena Andrade RN) History of Hemorrhage: No (06/28/2016 03:02:Sena Andrade RN) History of Loss/Stillborn: No (06/28/2016 03:02:Sena Andrade RN) History of : No (06/28/2016 03:02:Sena Andrade RN) History of D (Rh) Sensitization: No (06/28/2016 03:02:Sena Andrade RN) History Recurrent Loss/Stillborn: No (06/28/2016 03:02:Sena Andrade RN) History Depression/PP Depression: No (06/28/2016 03:02:Sena Andrade RN) History of Uterine Anomaly/YUSEF: No (06/28/2016 03:02:Sena Andrade RN) History of Infertility: No (06/28/2016 03:02:Sena Andrade RN) History of ART Treatment: No (06/28/2016 03:02:Sena Andrade RN) History of YUSEF: No (06/28/2016 03:02:Sena Andrade RN) Comments Obstetrical History: G1 - current (06/28/2016 03:02:Sena Andrade RN) MEDICAL HISTORY Med Hx Diabetes: No (06/28/2016 03:02:Sena Andrade RN) Med Hx Hypertension: No (06/28/2016 03:02:Sena Andrade RN) Med Hx Heart Disease: No (06/28/2016 03:02:Sena Andrade RN) Med Hx Autoimmune Disorder: No (06/28/2016 03:02:Sena Andrade RN) Med Hx Kidney Disease/UTI: No (06/28/2016 03:02:Sena Andrade RN) Med Hx Neurologic/Epilepsy: No (06/28/2016 03:02:Sena Andrade RN) Med Hx Psychiatric Disorders: No (06/28/2016 03:02:Sena Andrade RN) Med Hx Hepatitis/Liver Disease: No (06/28/2016 03:02:Sena Andrade RN) Med Hx Varicosities/Phlebitis: No (06/28/2016 03:02:Sena Andrade RN) Med Hx Thyroid Dysfunction: No (06/28/2016 03:02:Sena Andrade RN) Med Hx Trauma/Violence: No (06/28/2016 03:02:Sena Andrade RN) Med Hx Blood Transfusion: No (06/28/2016 03:02:Sena Andrade RN) Med Hx Pulmonary (Asthma,TB): No (06/28/2016 03:02:Sena Andrade RN) Med Hx Breast: No (06/28/2016 03:02:Sena Andrade RN) Med Hx SPLICING TECHNICIAN Surgery: No (06/28/2016 03:02:Sena Andrade RN) Med Hx Hospitalization/Surgery: No (06/28/2016 03:02:Sena Andrade RN) Med Hx Anesthetic Complications: No (06/28/2016 03:02:Sena Andrade RN) Med Hx Abnormal Pap Smear: Yes (06/28/2016 03:02:Sena Andrade RN) Other Medical Diseases: No (06/28/2016 03:02:Sena Andrade RN) Med Hx Significant Family Hx: No (06/28/2016 03:02:Sena Andrade RN) Details of Med/Surg Hx: Abnormal Pap - 2010 (06/28/2016 03:02:Sena Andrade RN) INFECTIOUS HISTORY Inf Hx Gonorrhea: No (06/28/2016 03:02:Sena Andrade RN) Inf Hx Chlamydia: No (06/28/2016 03:02:Sena Andrade RN) Inf Hx Syphilis: No (06/28/2016 03:02:Sena Andrade RN) Inf Hx HIV/AIDS: No (06/28/2016 03:02:Sena Andrade RN) Inf Hx Human Papilloma Virus: Yes (06/28/2016 03:02:Sena Andrade RN) Inf Hx Pt/Partner Genital Herpes: No (06/28/2016 03:02:Sena Andrade RN) Inf Hx Tuberculosis/Exposure: No (06/28/2016 03:02:Sena Andrade RN) Inf Hx Hepatitis B,C: No (06/28/2016 03:02:Sena Andrade RN) Inf Hx Rash or Viral Illness: No (06/28/2016 03:02:Sena Andrade RN) Details of Infectious Hx: HPV - 2011 - colposcopy (06/28/2016 03:02:Sena Andrade RN) GENETIC HISTORY Gen Hx Age >=35 at JAZMÍN: No (06/28/2016 03:02:Sena Andrade RN) Gen Hx Thalassemia: No (06/28/2016 03:02:Sena Andrade RN) Gen Hx Congenital Heart Defect: No (06/28/2016 03:02:Sena Andrade RN) Gen Hx Neural Tube Defect: No (06/28/2016 03:02:Sena Andrade RN) Gen Hx Down's Syndrome: Yes (06/28/2016 03:02:Sena Andrade RN) Gen Hx Harrison-Sachs: No (06/28/2016 03:02:Sena Andrade RN) Gen Hx Joie: No (06/28/2016 03:02:Sena Andrade RN) Gen Hx Familial Dysautonomia: No (06/28/2016 03:02:Sena Andrade RN) Gen Hx Sickle Cell Disease/Trait: No (06/28/2016 03:02:Sena Andrade RN) Gen Hx Hemophilia/Blood Disorder: No (06/28/2016 03:02:Sena Andrade RN) Gen Hx Muscular Dystrophy: No (06/28/2016 03:02:Sena Andrade RN) Gen Hx Cystic Fibrosis: No (06/28/2016 03:02:Sena Andrade RN) Gen Hx Huntingtons Chorea: No (06/28/2016 03:02:Sena Andrade RN) Gen Hx Mental Retardation/Autism: No (06/28/2016 03:02:Sena Andrade RN) Gen Hx Tested for Fragile X: No (06/28/2016 03:02:Sena Andrade RN) Gen Hx Other Inher/Chromosomal: No (06/28/2016 03:02:Sena Andrade RN) Gen Hx Maternal Metabolic DO: No (06/28/2016 03:02:Sena Andrade RN) Gen Hx Pt Father or FOB Defect: No (06/28/2016 03:02:Sena Andrade RN) Gen Hx Other Genetic History: No (06/28/2016 03:02:Sena Andrade RN) Gen Hx Drugs/Meds since LMP: Yes (06/28/2016 03:02:Sena Andrade RN) Gen Hx Medications: vitamins, Zantac, Eva (06/28/2016 03:02:Sena Andrade RN) Details of Genetic History: FOB's Aunt - down syndrome (06/28/2016 03:02:Sena Andrade RN)
--- NOTE | 2016-06-29 18:16 | L&D Care Plan ---
LD CARE PLANS Datetime Report Generated by CPN: 06/29/2016 18:15 Datetime: 06/28/2016 11:00 Pain State: Actual (Chioma Camp, RNC) Related To: Labor and Delivery Process; Treatment and Procedures; Post (Chioma Camp, RNC) Goal(s): Patients Pain will be Assessed and Managed; Patient will Verbalize Adequate Relief of Pain or the Ability to [place] with Current Pain (Chioma Camp, RNC) Interventions: Assess Pain Severity on Scale of 0 (None) to 5 (Severe); Assess Type, Location and Intensity of Pain Each Time Client Reports Discomfort and Notify Provider if Unusal Pain Develops; Encourage Proper Breathing and Relaxation Techniques; Offer Alternatives Such as Repositioning, Calm Environment, Massages, Diversional Activities, Ice Pack, Splinting, and Ambulation; Administer Analgesics as Ordered; Assist with Epidural Placement as Appropriate; Evaluate Therapeutic Effectiveness of Medication and Treatments (Chioma Rowell, NEHEMIAS) Outcome: Patient will Report Absence or Relief of Pain Consistent with Established Pain Goal (NEHEMIAS Cole) Status: Ongoing (NEHEMIAS Cole) Outcome: Patient will have a Decrease in Signs and Symptoms of Discomfort (Chioma Rowell, RNC) Status: Ongoing (NEHEMIAS Cole) Outcome: Pain will be Controlled During Procedures (NEHEMIAS Cole) Status: Ongoing (NEHEMIAS Cole) Anxiety State: Actual (NEHEMIAS Cole) Related To: Labor and Delivery Process; Fear of Unknown; Situational Crisis; Medical Interventions; Significant Life Event (NEHEMIAS Cole) Goal(s): Patient will have Decreased Anxiety and be able to Function at Acceptable Levels (Chioma Rowell, NEHEMIAS) Interventions: Assess Verbal and Nonverbal Behavioral Indicators of Anxiety; Assist Patient to Identify and Verbalize Symptoms of Anxiety; Identify and Demonstrate Techniques to Control Anxiety; Assist Patient with Coping Mechanisms to Manage Anxiety; Provide Theraputic Touch for the Patient; Explain to Patient, Using a Calm Reassuring Approach and Nonmedical Terms, All Activities, Procedures, and Concerns; Instruct Patient and Family about Post Discharge Care, Limitations, Symptoms to Report and Resources Available (Chioma Rowell, NEHEMIAS) Outcome: Patient will Identify, Verbalize and Demonstrate Techniques to Control Anxiety (NEHEMIAS Cole) Status: Ongoing (Chioma Rowell RN) Outcome: Patient's Posture, Facial Expressions, Gestures and Activity Level will Reflect Decreased Anxiety (NEHEMIAS Cole) Status: Ongoing (Chioma Rowell RN) Outcome: Patient will Verbalize a Sense of Control and/or Acceptance of the Situation (Chioma Rowell, RNC) Status: Ongoing (Chioma Rowell, RN) Outcome: Patient will Identify and Utilize Support Person (Chioma Rowell RN) Status: Ongoing (Chioma Rowell [facility]) Knowledge Deficit State: Actual (NEHEMIAS Cole) Related To: Labor and Delivery Process; Treatment and Procedures; Feeding and Infant Care; Community Resources and Available Support Mechanisms (NEHEMIAS Cole) Goal(s): Patient will Accurately Verbalize Understanding of Plan of Care and Treatment; Patient and Family will Accurately Verbalize Understanding of the Disease Process (NEHEMIAS Cole) Interventions: Assess Motivation and Willingness of Patient/Family to Learn; Assess Preferred Learning Mode: One to One Instruction, Reading, Videos, Group Discussion or Demonstration; Assess Barriers to Learning: Pain, Emotional State, Language Barrier, Cognitive Impairment, Visual or Hearing Deficits; Assess Patient and Family Knowledge of Disease Process, Medications and Treatment; Discuss Therapy and/or Treatment Options, Describe Rationale Behind Management, Therapy and Treatment Recommendations; Instruct Patient and Family on Signs and Symptoms to Report; Instruct Patient and Family on Medication Effects and Side Effects; Provide Appropriate and Timely Education Using Multiple Techniques; Provide Patient and Family with Support Group Information and Resources; Give Clear and Thorough Explanations and Demonstrations (NEHEMIAS Cole) Outcome: Patient and Family will Verbalize Understanding of Condition, Treatment and Signs and Symptoms to Report (NEHEMIAS Cole) Status: Ongoing (NEHEMIAS Cole) Outcome: Patient will Identify Perceived Learning Needs and Express Motivation to Learn ([facility], [facility]) Status: Ongoing ([facility], RN) Outcome: Patient will Verbalize Understanding of Desired Content, and/or Performs Desired Skill Prior to Discharge ([facility], RNC) Status: Ongoing ([facility], [facility]) Infection State: Risk For [facility] Related To: Prolonged Labor or Induction; Invasive Procedures ([facility], [facility]) Goal(s): The Patient will be Free of Infection, Vital Signs Stable and Lab Work within Normal Parameters ([facility], RN) Interventions: Instruct and Reinforce Proper Handwashing, Hygiene, and Care Techniques to Patient and Family; Monitor Vital Signs; Monitor Patient for the Following Signs of Infection: Fever, Abdominal Tenderness, Unusual Discharge; Monitor Aminiotic Fluid, Urine and Lochia for Color and Odor; Observe Wounds, Incisions and Invasive Line Sites for Redness, Drainage and Edema; Assess IV Sites per Hospital Policy; Monitor Lab and Test Results and Notify Provider of Abnormal Findings; Assess Nutritional Status and Promote Good Nutrition ([facility]) Outcome: Patient will Remain Free of Infection ([facility], RNC) Status: Ongoing ([facility], [facility]) Outcome: Infection will be Recognized Early to Allow for Prompt Treatment ([facility] Status: Ongoing ([facility], RN) Outcome: Patient will have Vital Signs Within Expected Range ([facility], RNC) Status: Ongoing ([facility], RNC) Fluid Volume State: Risk For (Milvia Cornelius RN) Related To: Prolonged Labor or Induction; Hemorrhage; Anesthesia (Milvia Cornelius RN) Goal(s): Patient will Achieve and Maintain a Balanced Fluid Volume Status; Hemodynamically Stable (Milvia Cornelius RN) Interventions: Monitor Vital Signs; Auscultate Breath Sounds; Monitor Patient for Skin Turgor, Mucous Membranes, Dry Skin, Weakness, Headaches and Confusion; Provide Oral Fluids as Ordered; Initiate and Maintain Intravenous Fluids as Ordered; Monitor Intake and Output as Indicated Per Patient Status; Accurately Measure Blood Loss; Monitor Lab and Test Results as Obtained and Notify Provider of Abnormal Findings; Monitor Patient's Weight (Milvia Cornelius RN) Outcome: Patient will have Clear Lung Sounds (Milvia Cornelius RN) Status: Ongoing (Milvia Cornelius RN) Outcome: Patient will have Vital Signs within Expected Range (Milvia Cornelius RN) Status: Ongoing (Milvia Cornelius RN) Outcome: Urine Output will be within Expected Range (Milvia Cornelius RN) Status: Ongoing (Milvia Cornelius RN) Outcome: Patient will have Minimal Generalized or Upper Extremity Edema (Milvia Cornelius RN) Status: Ongoing (Milvia Cornelius RN) Injury State: Risk For (NEHEMIAS Cole) Related To: Labor and Delivery Process; Anesthesia; Risk to Status; Uteroplacental Perfusion; Hemorrhage, Placenta Previa and or Placental Abruption (Milvia Cornelius RN) Goal(s): Patient will Remain Free from Injury (NEHEMIAS Cole) Interventions: Monitoring as per Hospital Protocol; Assess Neurological Status; Perform Risk Assessment of Patients with Induction and ; Perform Fall Risk Assessment and Prevention per Hospital Protocol; Perform DVT Risk Assessment and Prophylaxis per Hospital Protocol; Ensure that Oxygen, Suction, and Resuscitation Medications and Equipment are Readily Available; Confirm Patient ID Prior to Procedure(s) and Medication Administration per Hospital Policy (NEHEMIAS Cole) Outcome: Successful Fall Risk Prevention (NEHEMIAS Cole) Status: Ongoing (NEHEMIAS Cole) Outcome: Patient will Deliver Infant without Adverse Sequela (NEHEMIAS Cole) Status: Ongoing (NEHEMIAS Cole) Outcome: Patient's Neurological Status will Remain Stable (NEHEMIAS Cole) Status: Ongoing (NEHEMIAS Cole) Impaired Skin Integrity State: Risk For (NEHEMIAS Cole) Related To: Vaginal Delivery; Surgical Procedures; Invasive Procedures (NEHEMIAS Cole) Goal(s): Patient will Maintain Optimal Skin Integrity, Free of Breakdown, Injury or Infection (NEHEMIAS Cole) Interventions: Complete Screening for Pressure Ulcer Risk and Initiate Protocol per Hospital Policy; Monitor Site of Skin Impairment for Color Changes, Redness, Swelling, Warmth, Pain or Other Signs of Infection; Encourage and Assist with Position Changes; Monitor Patient's Mobility Status; Provide Adequate Nutrition and Fluids; Teach Patient Appropriate Hygienic Care; Teach Patient/Family Skin Care Management (Chioma Rowell, [facility]) Outcome: Patient will not have Evidence of Injury Such as Skin Breakdown, Scrapes, Cuts, or Bruising (Chioma Rowell, RNC) Status: Ongoing (Chioma Rowell, RN) Outcome: Patient will Report Any Altered Sensation or Pain at Site of Skin Impairment (Chioma Rowell, RNC) Status: Ongoing (Chioma Rowell, [facility]) Outcome: Patients Incisions and Wounds will be without Signs or Symptoms of Infection (Chioma Rowell, RN) Status: Ongoing (Chioma Rowell, [facility]) Outcome: Patient will Demonstrate Understanding of Plan to Heal Skin and Prevent Reinjury and Verbalize Risk Factors (Chioma Rowell, [facility]) Status: Ongoing (Chioma Rowell, [facility]) Parenting Impaired State: Risk For (Milvia Cornelius RN) Related To: Apprehension Related to [place]er Care (Milvia Cornelius RN) Goal(s): Parents will Demonstrate Progressive Parenting Behaviors (Milvia Cornelius RN) Interventions: Assess for Adequacy of Support Systems; Observe and Encourage Patient/Family Attachment and Bonding Activities and Provide Feedback; Assess Patient/Family Understanding of 's Condition and Provide Accurate Information About Condition, Treatment and Prognosis; Assess for Patient/Family Behaviors that May Indicate Lack of Attachment; Provide a Safe Non-judgmental Environment for Patient/Family to Discuss Concerns; Promote Patient/Family Cohesiveness by Encouraging Discussion and Problem Solving; Surgical Brace Maker Referral as Indicated (Milvia Cornelius RN) Outcome: Patient/Family will Discuss Their Fears and the Possibility of Difficulties with Parenting (Milvia Cornelius RN) Status: Ongoing (Milvia Cornelius RN) Outcome: Patient/Family will Exhibit Appropriate Bonding Behaviors with Infant (Milvia Cornelius RN) Status: Ongoing (Milvia Cornelius RN) Outcome: Patient/Family will Verbalize Positive Feelings and Demonstrate Affection and Caring Toward Infant (Milvia Cornelius RN) Status: Ongoing (Milvia Cornelius RN) Nutrition State: Risk For (Milvia Cornelius RN) Related To: ; (NEHEMIAS Cole) Goal(s): Patient will have an Intake of Nutrients Sufficient to Meet Metabolic Needs (NEHEMIAS Cole) Interventions: Nutritional Screening and Assessment per Hospital Policy; Consult Veterans Rehabilitation Counselor for Further Assessment and Recommendations Regarding Food Preferences and Nutritional Support; Allow Patient to Plan and Order Diet when Possible; Monitor Laboratory Values That Indicate Nutritional Well-being; Consult Manager Camp for Nutritional Support Regarding Requirements; Document Actual Weight Initially and Weekly (Do Not Estimate); Encourage Patient Participation in Maintaining a Food Log as Indicated; Educate Patient on the Importance of Maintaining an Adequate Caloric Intake (NEHEMIAS Cole) Outcome: Patient will Receive Adequate Calories and Fluid Volume to Meet Metabolic Needs (NEHEMIAS Cole) Status: Ongoing (NEHEMIAS Cole) Outcome: Patient will Select Foods or Meals that Support Adequate Nutrition (NEHEMIAS Cole) Status: Ongoing (NEHEMIAS Cloe) Grieving State: Not Applicable (Milvia Cornelius RN) Additional Care Plan State: Risk For (Milvia Cornelius RN) Nursing Diagnosis or r/t: (Milvia Cornelius RN) Goal(s): - every 2-3 hours, or on demand -no pacifiers -bottles unless medically necessary (Milvia Cornelius RN) Interventions: -nurse assistance with latch -business solutions consultant (Milvia Cornelius RN) Outcome Status: Ongoing (Milvia Cornelius RN)
[2016-06-30] MEDS: CEFAZOLIN 2 GM/D5W RTU 2 GM/50 ML RTUPB IV SCH (01:56)
[2016-06-30] MEDS: OXYCODONE-ACETAMINOPHEN 5-325 MG TABLET PO PRN ×3 (02:16→22:00)
--- NOTE | 2016-06-30 06:01 | L&D General Admission ---
General Admit Datetime Report Generated by CPN: 06/30/2016 06:00 INFORMATION Patient Age: 25 (05/01/2016 16:39:QS system process) EDC: 07/02/2016 00:00 (06/28/2016 03:02:Sena Andrade RN) : 1 (06/28/2016 03:02:Sena Andrade RN) Para: 0 (06/28/2016 03:02:Sena Andrade RN) Term: 0 (06/28/2016 03:02:Smooth Granados RN) : 0 (06/28/2016 03:02:Smooth Granados RN) Spontaneous Abortions: 0 (06/28/2016 03:02:Smooth Granados RN) Induced Abortions: 0 (06/28/2016 03:02:Smooth Granados RN) Livin (06/28/2016 03:02:Smooth Granados RN) Cesareans: 0 (06/28/2016 03:02:Smooth Granados RN) VBACs: 0 (06/28/2016 03:02:Smooth Granados RN) Ectopic: 0 (06/28/2016 03:02:Smooth Granados RN) Multiple Births: 0 (06/28/2016 03:02:Smooth Granados RN) Baby, Number in Womb: 1 (06/28/2016 03:02:Smooth Granados RN) CARE Primary Caustic Loader: [facility] (06/28/2016 03:02:Sena Andrade RN) Month of 1st Visit: 7 weeks (06/28/2016 03:02:Smooth Granados RN) Adequate Care: Yes (06/28/2016 03:02:Sena Andrade RN) Height (in): 67 (06/29/2016 01:08:QS system process) ALLERGIES Medication Allergy: No (06/28/2016 03:02:Sena Andrade RN) Medication Allergies: No Known Allergies (06/28/2016) (06/28/2016 03:11:QS system process) Latex Allergy: No Latex Allergies (06/28/2016 03:02:Sena Andrade RN) Food Allergies: N/A (06/28/2016 03:02:Sena Andrade RN) Environmental Allergies: N/a (06/28/2016 03:02:Sena Andrade RN) COMMUNICATION Primary Language: Azeri (06/28/2016 03:02:Sena Andrade RN) Medical Tx Preferred Language: Azeri (06/28/2016 03:02:Sena Andrade RN) Communication Barrier(s): None (06/28/2016 03:02:Sena Andrade RN) DEMOGRAPHICS Address: [address] [place] [id number] (05/01/2016 16:39:QS system process) Zipcode: [address] (05/01/2016 16:39:QS system process) Home (05/16/2016 08:19:QS system process) N: [id number] (05/01/2016 16:39:QS system process) Next of Kin Name: BOBBY PEREZ (05/01/2016 16:39:QS system process) Next of Kin (05/01/2016 16:39:QS system process) Next of Kin Relationship: SPO (05/01/2016 16:39:QS system process) Date of : 1990 (05/01/2016 16:39:QS system process) Marital Status: Single (05/01/2016 16:39:QS system process) Sex: Female (05/01/2016 16:39:QS system process) Race: (05/01/2016 16:39:QS system process) Ethnicity: Non- or (05/01/2016 16:39:QS system process) Orthodox: Episcopalian (05/01/2016 16:39:QS system process) FOB Involved: Yes (06/28/2016 03:02:Sena Andrade RN) Father of Baby Name: Bobby (06/28/2016 03:02:Sena Andrade RN) DRUG AND ALCOHOL USE Alcohol: No (06/28/2016 03:02:Sena Andrade RN) Cigarettes: Never Smoker. [id number] (06/28/2016 03:02:Sena Andrade RN) Marijuana: No (06/28/2016 03:02:Sena Andrade RN) Cocaine: No (06/28/2016 03:02:Sena Andrade RN) Other Illicit Drugs: No (06/28/2016 03:02:Sena Andrade RN) VACCINE HISTORY Influenza Vaccine: Yes (06/28/2016 03:02:Sena Andrade RN) Pneumococcal Vaccine: No (06/28/2016 03:02:Sena Andrade RN) Tetanus Vaccine: Yes (06/28/2016 03:02:Sena Andrade RN) Tdap Vaccine: Yes (06/28/2016 03:02:Sena Andrade RN) Hepatitis B Vaccine: Uncertain (06/28/2016 03:02:Sena Andrade RN) Horticulture Supervisor: [facility] (06/28/2016 03:02:Smooth Granados RN) Feeding Preference: Both (06/28/2016 03:02:Sena Andrade RN) Benefit of Breast Feed Discussed: Yes (06/28/2016 03:02:Sena Andrade RN) Circumcision: Yes (06/28/2016 03:02:Sena Andrade RN) Classes Attended: Yes (06/28/2016 03:02:Sena Andrade RN) Tubal Ligation: No (06/28/2016 03:02:Sena Andrade RN) Tubal Authorization Signed: N/A (06/28/2016 03:02:Sena Andrade RN) Consent: N/A (06/28/2016 03:02:Sena Andrade RN) Consent Signed: N/A (06/28/2016 03:02:Sena Andrade RN) Pain Management Plans: None (06/28/2016 03:02:Sena Andrade RN) Plans for Labor and Delivery: Plan (06/28/2016 03:02:Sena Andrade RN) Support Person: Bobby Perez (06/28/2016 03:02:Sena Andrade RN) Support Person Relationship: (06/28/2016 03:02:Sena Andrade RN) Cultural/Spritual Practice: No (06/28/2016 03:02:Sena Andrade RN) Spir/Cult Dietary Needs: No (06/28/2016 03:02:Sena Andrade RN) LIVING SITUATION/DISCHARGE PLAN Living Arrangements: House (06/28/2016 03:02:Sena Andrade RN) Adequate Access to:: Electric; Heat; Refrigeration; Plumbing/Running water; Phone; Transportation (06/28/2016 03:02:Sena Andrade RN) WIC Program: No (06/28/2016 03:02:Sena Andrade RN) Discharge Product Development Worker Person: Bobby Perez (06/28/2016 03:02:Sena Andrade RN) Person to Help after Discharge: Bobby Perez (06/28/2016 03:02:Sena Andrade RN) Currently Using Commun Resources: No (06/28/2016 03:02:Sena Andrade RN) Outside Agency/Vacuum System Tester: Valeria (06/28/2016 03:02:Sena Andrade RN) Car Seat for Discharge: Yes (06/28/2016 03:02:Sena Andrade RN) Adoption Requested: No (06/28/2016 03:02:Sena Andrade RN) Pt Contact w/ Post : N/A (06/28/2016 03:02:Sena Andrade RN) LABS Blood Type: A Positive (06/28/2016 03:02:Eunice Young RN) Antibody Screen: negative (06/28/2016 03:02:Eunice Young RN) Hemoglobin: 8.8 L (06/29/2016 06:38:QS system process) Hematocrit: 26.6 L (06/29/2016 06:38:QS system process) MCV: 82 (06/29/2016 06:38:QS system process) Group Beta Strep: negative (06/28/2016 03:02:Eunice Young RN) Gonorrhea: Negative (06/28/2016 03:02:Eunice Young RN) Chlamydia: Negative (06/28/2016 03:02:Eunice Young RN) RPR/VDRL: Nonreactive (06/28/2016 03:02:Eunice Young RN) HIV Results: non-reactive (06/28/2016 03:02:Eunice Young RN) Hepatitis B: Negative (06/28/2016 03:02:Eunice Young RN) Rubella: Non-Immune (06/28/2016 03:02:Eunice Young RN) OB/PREVIOUS HISTORY Current Procedures: Ultrasound (06/28/2016 03:02:Sena Andrade RN) History of Previous : No (06/28/2016 03:02:Sena Andrade RN) History of Gestational Diabetes: No (06/28/2016 03:02:Sena Andrade RN) History of PIH: No (06/28/2016 03:02:Sena Andrade RN) History of Incompetent Cervix: No (06/28/2016 03:02:Sena Andrade RN) History of Placenta Previa/Abrup: No (06/28/2016 03:02:Sena Andrade RN) History of Macrosomia: No (06/28/2016 03:02:Sena Andrade RN) History of IUGR: No (06/28/2016 03:02:Sena Andrade RN) History of Hemorrhage: No (06/28/2016 03:02:Sena Andrade RN) History of Loss/Stillborn: No (06/28/2016 03:02:Sena Adnrade RN) History of : No (06/28/2016 03:02:Sena Andrade RN) History of D (Rh) Sensitization: No (06/28/2016 03:02:Sena Andrade RN) History Recurrent Loss/Stillborn: No (06/28/2016 03:02:Sena Andrade RN) History Depression/PP Depression: No (06/28/2016 03:02:Sena Andrade RN) History of Uterine Anomaly/YUSEF: No (06/28/2016 03:02:Sena Andrade RN) History of Infertility: No (06/28/2016 03:02:Sena Andrade RN) History of ART Treatment: No (06/28/2016 03:02:Sena Andrade RN) History of YUSEF: No (06/28/2016 03:02:Sena Andrade RN) Comments Obstetrical History: G1 - current (06/28/2016 03:02:Sena Andrade RN) MEDICAL HISTORY Med Hx Diabetes: No (06/28/2016 03:02:Sena Andrade RN) Med Hx Hypertension: No (06/28/2016 03:02:Sena Andrade RN) Med Hx Heart Disease: No (06/28/2016 03:02:Sena Andrade RN) Med Hx Autoimmune Disorder: No (06/28/2016 03:02:Sena Andrade RN) Med Hx Kidney Disease/UTI: No (06/28/2016 03:02:Sena Andrade RN) Med Hx Neurologic/Epilepsy: No (06/28/2016 03:02:Sena Andrade RN) Med Hx Psychiatric Disorders: No (06/28/2016 03:02:Sena Andrade RN) Med Hx Hepatitis/Liver Disease: No (06/28/2016 03:02:Sena Andrade RN) Med Hx Varicosities/Phlebitis: No (06/28/2016 03:02:Sena Andrade RN) Med Hx Thyroid Dysfunction: No (06/28/2016 03:02:Sena Andrade RN) Med Hx Trauma/Violence: No (06/28/2016 03:02:Sena Andrade RN) Med Hx Blood Transfusion: No (06/28/2016 03:02:Sena Andrade RN) Med Hx Pulmonary (Asthma,TB): No (06/28/2016 03:02:Sena Andrade RN) Med Hx Breast: No (06/28/2016 03:02:Sena Andrade RN) Med Hx TANK PUMPER Surgery: No (06/28/2016 03:02:Sena Andrade RN) Med Hx Hospitalization/Surgery: No (06/28/2016 03:02:Sena Andrade RN) Med Hx Anesthetic Complications: No (06/28/2016 03:02:Sena Andrade RN) Med Hx Abnormal Pap Smear: Yes (06/28/2016 03:02:Sena Andrade RN) Other Medical Diseases: No (06/28/2016 03:02:Sena Andrade RN) Med Hx Significant Family Hx: No (06/28/2016 03:02:Sena Andrade RN) Details of Med/Surg Hx: Abnormal Pap - 2010 (06/28/2016 03:02:Sena Andrade RN) INFECTIOUS HISTORY Inf Hx Gonorrhea: No (06/28/2016 03:02:Sena Andrade RN) Inf Hx Chlamydia: No (06/28/2016 03:02:Sena Andrade RN) Inf Hx Syphilis: No (06/28/2016 03:02:Sena Andrade RN) Inf Hx HIV/AIDS: No (06/28/2016 03:02:Sena Andrade RN) Inf Hx Human Papilloma Virus: Yes (06/28/2016 03:02:Sena Andrade RN) Inf Hx Pt/Partner Genital Herpes: No (06/28/2016 03:02:Sena Andrade RN) Inf Hx Tuberculosis/Exposure: No (06/28/2016 03:02:Sena Andrade RN) Inf Hx Hepatitis B,C: No (06/28/2016 03:02:Sena Andrade RN) Inf Hx Rash or Viral Illness: No (06/28/2016 03:02:Sena Andrade RN) Details of Infectious Hx: HPV - 2011 - colposcopy (06/28/2016 03:02:Sena Andrade RN) GENETIC HISTORY Gen Hx Age >=35 at JAZMÍN: No (06/28/2016 03:02:Sena Andrade RN) Gen Hx Thalassemia: No (06/28/2016 03:02:Sena Andrade RN) Gen Hx Congenital Heart Defect: No (06/28/2016 03:02:Sena Andrade RN) Gen Hx Neural Tube Defect: No (06/28/2016 03:02:Sena Andrade RN) Gen Hx Down's Syndrome: Yes (06/28/2016 03:02:Sena Andrade RN) Gen Hx Harrison-Sachs: No (06/28/2016 03:02:Sena Andrade RN) Gen Hx Joie: No (06/28/2016 03:02:Sena Andrade RN) Gen Hx Familial Dysautonomia: No (06/28/2016 03:02:Sena Andrade RN) Gen Hx Sickle Cell Disease/Trait: No (06/28/2016 03:02:Sena Andrade RN) Gen Hx Hemophilia/Blood Disorder: No (06/28/2016 03:02:Sena Andrade RN) Gen Hx Muscular Dystrophy: No (06/28/2016 03:02:Sena Andrade RN) Gen Hx Cystic Fibrosis: No (06/28/2016 03:02:Sena Andrade RN) Gen Hx Huntingtons Chorea: No (06/28/2016 03:02:Sena Andrade RN) Gen Hx Mental Retardation/Autism: No (06/28/2016 03:02:Sena Andrade RN) Gen Hx Tested for Fragile X: No (06/28/2016 03:02:Sena Andrade RN) Gen Hx Other Inher/Chromosomal: No (06/28/2016 03:02:Sena Andrade RN) Gen Hx Maternal Metabolic DO: No (06/28/2016 03:02:Sena Andrade RN) Gen Hx Pt Father or FOB Defect: No (06/28/2016 03:02:Sena Andrade RN) Gen Hx Other Genetic History: No (06/28/2016 03:02:Sena Andrade RN) Gen Hx Drugs/Meds since LMP: Yes (06/28/2016 03:02:Sena Andrade RN) Gen Hx Medications: vitamins, Zantac, Eva (06/28/2016 03:02:Sena Andrade RN) Details of Genetic History: FOB's Aunt - down syndrome (06/28/2016 03:02:Sena Andrade RN)
--- NOTE | 2016-06-30 06:16 | L&D Care Plan ---
LD CARE PLANS Datetime Report Generated by CPN: 06/30/2016 06:15 Datetime: 06/28/2016 11:00 Pain State: Actual (Chioma Camp, RNC) Related To: Labor and Delivery Process; Treatment and Procedures; Post (Chioma Camp, RNC) Goal(s): Patients Pain will be Assessed and Managed; Patient will Verbalize Adequate Relief of Pain or the Ability to [place] with Current Pain (Chioma Camp, RNC) Interventions: Assess Pain Severity on Scale of 0 (None) to 5 (Severe); Assess Type, Location and Intensity of Pain Each Time Client Reports Discomfort and Notify Provider if Unusal Pain Develops; Encourage Proper Breathing and Relaxation Techniques; Offer Alternatives Such as Repositioning, Calm Environment, Massages, Diversional Activities, Ice Pack, Splinting, and Ambulation; Administer Analgesics as Ordered; Assist with Epidural Placement as Appropriate; Evaluate Therapeutic Effectiveness of Medication and Treatments (Chioma Rowell, NEHEMIAS) Outcome: Patient will Report Absence or Relief of Pain Consistent with Established Pain Goal (NEHEMIAS Cole) Status: Ongoing (NEHEMIAS Cole) Outcome: Patient will have a Decrease in Signs and Symptoms of Discomfort (Chioma Rowell, RNC) Status: Ongoing (NEHEMIAS Cole) Outcome: Pain will be Controlled During Procedures (NEHEMIAS Cole) Status: Ongoing (NEHEMIAS Cole) Anxiety State: Actual (NEHEMIAS Cole) Related To: Labor and Delivery Process; Fear of Unknown; Situational Crisis; Medical Interventions; Significant Life Event (NEHEMIAS Cole) Goal(s): Patient will have Decreased Anxiety and be able to Function at Acceptable Levels (Chioma Rowell, NEHEMIAS) Interventions: Assess Verbal and Nonverbal Behavioral Indicators of Anxiety; Assist Patient to Identify and Verbalize Symptoms of Anxiety; Identify and Demonstrate Techniques to Control Anxiety; Assist Patient with Coping Mechanisms to Manage Anxiety; Provide Theraputic Touch for the Patient; Explain to Patient, Using a Calm Reassuring Approach and Nonmedical Terms, All Activities, Procedures, and Concerns; Instruct Patient and Family about Post Discharge Care, Limitations, Symptoms to Report and Resources Available (Chioma Rowell, NEHEMIAS) Outcome: Patient will Identify, Verbalize and Demonstrate Techniques to Control Anxiety (NEHEMIAS Cole) Status: Ongoing (Chioma Rowell RN) Outcome: Patient's Posture, Facial Expressions, Gestures and Activity Level will Reflect Decreased Anxiety (NEHEMIAS Cole) Status: Ongoing (Chioma Rowell RN) Outcome: Patient will Verbalize a Sense of Control and/or Acceptance of the Situation (Chioma Rowell, RNC) Status: Ongoing (Chioma Rowell, RN) Outcome: Patient will Identify and Utilize Support Person (Chioma Rowell RN) Status: Ongoing (Chioma Rowell [facility]) Knowledge Deficit State: Actual (NEHEMIAS Cole) Related To: Labor and Delivery Process; Treatment and Procedures; Feeding and Infant Care; Community Resources and Available Support Mechanisms (NEHEMIAS Cole) Goal(s): Patient will Accurately Verbalize Understanding of Plan of Care and Treatment; Patient and Family will Accurately Verbalize Understanding of the Disease Process (NEHEMIAS Cole) Interventions: Assess Motivation and Willingness of Patient/Family to Learn; Assess Preferred Learning Mode: One to One Instruction, Reading, Videos, Group Discussion or Demonstration; Assess Barriers to Learning: Pain, Emotional State, Language Barrier, Cognitive Impairment, Visual or Hearing Deficits; Assess Patient and Family Knowledge of Disease Process, Medications and Treatment; Discuss Therapy and/or Treatment Options, Describe Rationale Behind Management, Therapy and Treatment Recommendations; Instruct Patient and Family on Signs and Symptoms to Report; Instruct Patient and Family on Medication Effects and Side Effects; Provide Appropriate and Timely Education Using Multiple Techniques; Provide Patient and Family with Support Group Information and Resources; Give Clear and Thorough Explanations and Demonstrations (NEHEMIAS Cole) Outcome: Patient and Family will Verbalize Understanding of Condition, Treatment and Signs and Symptoms to Report (NEHEMIAS Cole) Status: Ongoing (NEHEMIAS Cole) Outcome: Patient will Identify Perceived Learning Needs and Express Motivation to Learn ([facility], [facility]) Status: Ongoing ([facility], RN) Outcome: Patient will Verbalize Understanding of Desired Content, and/or Performs Desired Skill Prior to Discharge ([facility], RNC) Status: Ongoing ([facility], [facility]) Infection State: Risk For ([facility]) Related To: Prolonged Labor or Induction; Invasive Procedures ([facility], [facility]) Goal(s): The Patient will be Free of Infection, Vital Signs Stable and Lab Work within Normal Parameters ([facility], RN) Interventions: Instruct and Reinforce Proper Handwashing, Hygiene, and Care Techniques to Patient and Family; Monitor Vital Signs; Monitor Patient for the Following Signs of Infection: Fever, Abdominal Tenderness, Unusual Discharge; Monitor Aminiotic Fluid, Urine and Lochia for Color and Odor; Observe Wounds, Incisions and Invasive Line Sites for Redness, Drainage and Edema; Assess IV Sites per Hospital Policy; Monitor Lab and Test Results and Notify Provider of Abnormal Findings; Assess Nutritional Status and Promote Good Nutrition ([facility], [facility]) Outcome: Patient will Remain Free of Infection ([facility], RNC) Status: Ongoing ([facility], [facility]) Outcome: Infection will be Recognized Early to Allow for Prompt Treatment ([facility]) Status: Ongoing ([facility], RN) Outcome: Patient will have Vital Signs Within Expected Range ([facility], RNC) Status: Ongoing ([facility], RNC) Fluid Volume State: Risk For (Milvia Cornelius RN) Related To: Prolonged Labor or Induction; Hemorrhage; Anesthesia (Milvia Cornelius RN) Goal(s): Patient will Achieve and Maintain a Balanced Fluid Volume Status; Hemodynamically Stable (Milvia Cornelius RN) Interventions: Monitor Vital Signs; Auscultate Breath Sounds; Monitor Patient for Skin Turgor, Mucous Membranes, Dry Skin, Weakness, Headaches and Confusion; Provide Oral Fluids as Ordered; Initiate and Maintain Intravenous Fluids as Ordered; Monitor Intake and Output as Indicated Per Patient Status; Accurately Measure Blood Loss; Monitor Lab and Test Results as Obtained and Notify Provider of Abnormal Findings; Monitor Patient's Weight (Milvia Cornelius RN) Outcome: Patient will have Clear Lung Sounds (Milvia Cornelius RN) Status: Ongoing (Milvia Cornelius RN) Outcome: Patient will have Vital Signs within Expected Range (Milvia Cornelius RN) Status: Ongoing (Milvia Cornelius RN) Outcome: Urine Output will be within Expected Range (Milvia Cornelius RN) Status: Ongoing (Milvia Cornelius RN) Outcome: Patient will have Minimal Generalized or Upper Extremity Edema (Milvia Cornelius RN) Status: Ongoing (Milvia Cornelius RN) Injury State: Risk For (NEHEMIAS Cole) Related To: Labor and Delivery Process; Anesthesia; Risk to Status; Uteroplacental Perfusion; Hemorrhage, Placenta Previa and or Placental Abruption (Milvia Cornelius RN) Goal(s): Patient will Remain Free from Injury (NEHEMIAS Cole) Interventions: Monitoring as per Hospital Protocol; Assess Neurological Status; Perform Risk Assessment of Patients with Induction and ; Perform Fall Risk Assessment and Prevention per Hospital Protocol; Perform DVT Risk Assessment and Prophylaxis per Hospital Protocol; Ensure that Oxygen, Suction, and Resuscitation Medications and Equipment are Readily Available; Confirm Patient ID Prior to Procedure(s) and Medication Administration per Hospital Policy (NEHEMIAS Cole) Outcome: Successful Fall Risk Prevention (NEHEMIAS Cole) Status: Ongoing (NEHEMIAS Cole) Outcome: Patient will Deliver Infant without Adverse Sequela (NEHEMIAS Cole) Status: Ongoing (NEHEMIAS Cole) Outcome: Patient's Neurological Status will Remain Stable (NEHEMIAS Cole) Status: Ongoing (NEHEMIAS Cole) Impaired Skin Integrity State: Risk For (NEHEMIAS Cole) Related To: Vaginal Delivery; Surgical Procedures; Invasive Procedures (NEHEMIAS Cole) Goal(s): Patient will Maintain Optimal Skin Integrity, Free of Breakdown, Injury or Infection (NEHEMIAS Cole) Interventions: Complete Screening for Pressure Ulcer Risk and Initiate Protocol per Hospital Policy; Monitor Site of Skin Impairment for Color Changes, Redness, Swelling, Warmth, Pain or Other Signs of Infection; Encourage and Assist with Position Changes; Monitor Patient's Mobility Status; Provide Adequate Nutrition and Fluids; Teach Patient Appropriate Hygienic Care; Teach Patient/Family Skin Care Management (Chioma Rowell, [facility]) Outcome: Patient will not have Evidence of Injury Such as Skin Breakdown, Scrapes, Cuts, or Bruising (Chioma Rowell, RNC) Status: Ongoing (Chioma Rowell, RN) Outcome: Patient will Report Any Altered Sensation or Pain at Site of Skin Impairment (Chioma Rowell, RNC) Status: Ongoing (Chioma Rowell, [facility]) Outcome: Patients Incisions and Wounds will be without Signs or Symptoms of Infection (Chioma Rowell, RN) Status: Ongoing (Chioma Rowell, [facility]) Outcome: Patient will Demonstrate Understanding of Plan to Heal Skin and Prevent Reinjury and Verbalize Risk Factors (Chioma Rowell, [facility]) Status: Ongoing (Chioma Rowell, [facility]) Parenting Impaired State: Risk For (Milvia Cornelius RN) Related To: Apprehension Related to [place] Care (Milvia Cornelius RN) Goal(s): Parents will Demonstrate Progressive Parenting Behaviors (Milvia Cornelius RN) Interventions: Assess for Adequacy of Support Systems; Observe and Encourage Patient/Family Attachment and Bonding Activities and Provide Feedback; Assess Patient/Family Understanding of 's Condition and Provide Accurate Information About Condition, Treatment and Prognosis; Assess for Patient/Family Behaviors that May Indicate Lack of Attachment; Provide a Safe Non-judgmental Environment for Patient/Family to Discuss Concerns; Promote Patient/Family Cohesiveness by Encouraging Discussion and Problem Solving; Medical Logistics Specialist Referral as Indicated (Milvia Cornelius RN) Outcome: Patient/Family will Discuss Their Fears and the Possibility of Difficulties with Parenting (Milvia Cornelius RN) Status: Ongoing (Milvia Cornelius RN) Outcome: Patient/Family will Exhibit Appropriate Bonding Behaviors with Infant (Milvia Cornelius RN) Status: Ongoing (Mlivia Cornelius RN) Outcome: Patient/Family will Verbalize Positive Feelings and Demonstrate Affection and Caring Toward Infant (Milvia Cornelius RN) Status: Ongoing (Milvia Cornelius RN) Nutrition State: Risk For (Milvia Cornelius RN) Related To: ; (NEHEMIAS Cole) Goal(s): Patient will have an Intake of Nutrients Sufficient to Meet Metabolic Needs (NEHEMIAS Cole) Interventions: Nutritional Screening and Assessment per Hospital Policy; Consult Horse Wrangler for Further Assessment and Recommendations Regarding Food Preferences and Nutritional Support; Allow Patient to Plan and Order Diet when Possible; Monitor Laboratory Values That Indicate Nutritional Well-being; Consult Health And Safety Technician for Nutritional Support Regarding Requirements; Document Actual Weight Initially and Weekly (Do Not Estimate); Encourage Patient Participation in Maintaining a Food Log as Indicated; Educate Patient on the Importance of Maintaining an Adequate Caloric Intake (NEHEMIAS Cole) Outcome: Patient will Receive Adequate Calories and Fluid Volume to Meet Metabolic Needs (NEHEMIAS Cole) Status: Ongoing (NEHEMIAS Cole) Outcome: Patient will Select Foods or Meals that Support Adequate Nutrition (NEHEMIAS Cole) Status: Ongoing (NEHEMIAS Cole) Grieving State: Not Applicable (Milvia Cornelius RN) Additional Care Plan State: Risk For (Milvia Cornelius RN) Nursing Diagnosis or r/t: (Milvia Cornelius RN) Goal(s): - every 2-3 hours, or on demand -no pacifiers -bottles unless medically necessary (Milvia Cornelius RN) Interventions: -nurse assistance with latch -insurance healthcare consultant (Milvia Cornelius RN) Outcome Status: Ongoing (Milvia Cornelius RN)
--- NOTE | 2016-06-30 09:02 | PDOC PROGRESS REPORT ---
Subjective-OB Subjective: Post Delivery Day: 25 year old. Denies any needs at this time Physical Exam (OB) Vital Signs: Temp Pulse Resp BP Pulse Ox 97.9 F 94 18 111/56 L 98 06/30/16 07:00 06/30/16 07:00 06/30/16 07:00 06/30/16 07:00 06/30/16 07:00 Intake & Output 06/29/16 06/30/16 07/01/16 06:59 06:59 06:59 Intake Total 450 Output Total 2250 1500 Balance -1800 -1500 Weight 121.15 kg - Dressing Removed: Yes Incision: Dressing, Well Approximated - Lochia Lochia Amount: Small 10-25 ml Lochia Color: Rubra/Red - Abdomen Description: Soft, Round Hernia Present: No Bowel Sounds: Normoactive Flatus Presence: Present Stool: No Fundal Description: Firm, Midline Fundal Height: u/u - u/2 Objective-Diagnostic Laboratory: 06/29/16 06:38
[2016-06-30] MEDS: PRENATAL VITAMIN W-O CA NO5/FE FUMARATE/FA CAPSULE PO SCH (10:16)
[2016-06-30] MEDS: DOCUSATE SODIUM 100 MG CAPSULE PO SCH ×2 (10:16→17:35)
[2016-07-01 08:16] VITALS: BP 112/70
[2016-07-01] MEDS: PRENATAL VITAMIN W-O CA NO5/FE FUMARATE/FA CAPSULE PO SCH (10:03)
[2016-07-01] MEDS: DOCUSATE SODIUM 100 MG CAPSULE PO SCH (10:03)
--- NOTE | 2016-07-01 14:02 | PDOC DISCHARGE SUMMARY ---
Final Diagnosis Discharge Date: 07/01/16 - Final Diagnosis (1) History of asthma Is this a current diagnosis for this admission?: Yes (2) Abnormal Pap smear of cervix Is this a current diagnosis for this admission?: Yes (3) Obesity Is this a current diagnosis for this admission?: Yes (4) Arrest of dilation, delivered, current hospitalization Is this a current diagnosis for this admission?: Yes (5) Is this a current diagnosis for this admission?: Yes (6) Delivery by emergency caesarean section Is this a current diagnosis for this admission?: Yes Discharge Data - Discharge Medication Home Medications: Diphenhydramine HCl [Benadryl] 25 mg PO PRN PRN 06/28/16 Fexofenadine HCl [Eva] 30 mg PO DAILY 06/28/16 Srr395/Iron Fumarate/FA/Dss [ 19 Tablet] 1 tab PO DAILY 06/28/16 Ranitidine HCl [Zantac 75 mg Tablet] 1 tab PO DAILY 06/28/16 Docusate Sodium [Colace 100 mg Capsule] 100 mg PO BID #60 capsule 07/01/16 Ferrous Sulfate [Feosol 325 mg Tablet] 325 mg PO BID #90 tab 07/01/16 Ibuprofen 800 mg PO TID #90 tablet 07/01/16 Oxycodone HCl/Acetaminophen [Percocet 5-325 mg Tablet] 1 tab PO Q4HP PRN #30 tablet 07/01/16 Reason(s) for Admission: Onset of Labor Procedures: Ultrasound Intrapartum Procedure(s): : Low Cervical, Transverse - Diagnosis Test Laboratory: Temp Pulse Resp BP Pulse Ox 97.8 F 90 18 112/70 100 07/01/16 08:10 07/01/16 08:10 07/01/16 08:10 07/01/16 08:10 07/01/16 08:10 06/28/16 06/29/16 11:34 06:38 RBC 3.87 3.25 L Hgb 10.6 L 8.8 L Hct 32.0 L 26.6 L - Discharge information/Instructions Discharge Activity: Activity As Tolerated, No Driving, No Lifting Over 10 Pounds , No Lifting/Push/Pulling, Pelvic Rest, No tub bath Discharge Diet: Regular Disposition: HOME, SELF-CARE Follow up with: [facility] in: 1, Weeks - incision check
== END 2016-07-01 14:31 | disposition home or self-care (01) | DRG 766 ==
LOC: LC 07:01 → LR 10:55 → 2S 06-29 00:25
PROVIDERS: ADMIT Student in an Organized Health Care Education/Training Program; ATTEND Student in an Organized Health Care Education/Training Program
PROC: 10D00Z1 Extraction of Products of Conception, Low, Open Approach (ICD-10-PCS; principal; 2016-06-28)
DX: O99.214 Obesity complicating childbirth (principal); O77.0 Labor and delivery complicated by meconium in amniotic fluid; O62.1 Secondary uterine inertia; O75.89 Other specified complications of labor and delivery; J45.909 Unspecified asthma, uncomplicated; Z3A.39 39 weeks gestation of pregnancy; Z37.0 Single live birth
CPT/HCPCS: 1961; 36415; 59025; 85025; 85027; 86592; 86850; 86900; 86901; 88307; 90707; 94760; 94799; C1765; J0131; J0690; J1885; J2210; J2250; J2270; J2405; J2590; J3010; J3490

== ENCOUNTER 2018-02-23 10:08 | Day surgery (SDC) | payer OTHER ==
[~2018-02-23 10:08] MED LIST: PROPOFOL INJ 200 MG/20 ML VIAL IV ONE
[2018-02-23] MEDS ORDERED: PROPOFOL INJ 200 MG/20 ML VIAL IV ONE (11:39)
[2018-02-23 12:28] VITALS: BP 107/60
--- NOTE | 2018-02-23 13:57 | Operative Report ---
Operative Report DATE OF SURGERY: 02/23/18 Operative Report: The risks, benefits and alternatives of the procedure including risks of bleeding, perforation requiring surgery are explained to the patient in detail and informed consent is obtained. Patient is brought back to the endoscopy suite and placed in the left, lateral decubital position. Timeout was called. Propofol medication is administered. A rectal examination is done which did not reveal any masses, tears or fissures. An Olympus videoscope was introduced into the patient's rectum. The scope was then carefully advanced all the way to the cecum. The cecum was identified by the usual anatomical landmarks including the ileocecal valve as well as the appendiceal office. Photodocumentation is obtained. The scope was then sequentially pulled back via the various segments of the colon including the ascending colon, hepatic flexure, transverse colon, splenic flexure, descending colon and finally into the rectosigmoid portions of the colon. Retroflexion maneuver is performed. PREOPERATIVE DIAGNOSIS: Rectal bleeding POSTOPERATIVE DIAGNOSIS: Greater than 2 cm polyp noted to have blood in the past in the area of the sigmoid that was removed via snare polypectomy. [address] to reduce the risk of potential post polypectomy bleeding given the size of the stalk. OPERATION: Colonoscopy with snare polypectomy SURGEON: FRANCISCO GALLARDO ANESTHESIA: LMAC TISSUE REMOVED OR ALTERED: As noted above COMPLICATIONS: None. ESTIMATED BLOOD LOSS: None. INTRAOPERATIVE FINDINGS: As noted above. PROCEDURE: Patient tolerated the procedure well. No immediate postprocedure complications are noted. Patient discharged in good condition. Discharge date 02/23/2018. Discharge diet: Regular. Discharge activity: Regular. 2-3-week follow-up to discuss findings. 3-year surveillance colonoscopy. Patient is instructed call the office or proceed to the emergency room should there be any further proximal questions.
== END 2018-02-23 12:22 | disposition home or self-care (01) ==
LOC: END 10:08
PROVIDERS: ATTEND Internal Medicine Gastroenterology
DX: D12.5 Benign neoplasm of sigmoid colon (principal); K62.5 Hemorrhage of anus and rectum; J45.909 Unspecified asthma, uncomplicated; Z79.51 Long term (current) use of inhaled steroids; Z79.899 Other long term (current) drug therapy
CPT/HCPCS: 45385; 81025; 88305 ×2; J2704; 811

== ENCOUNTER 2019-05-17 05:01 | Inpatient (IN) | payer OTHER ==
[2019-05-14 11:00] LABS: ABSOLUTE EOSINOPHILS # (AUTO) 0.1 10^3/uL (0.0-0.6); ABSOLUTE LYMPHOCYTES (AUTO) 2.3 10^3/uL (0.5-4.7); ABSOLUTE MONOCYTES (AUTO) 0.7 10^3/uL (0.1-1.4); ABSOLUTE NEUT (AUTO) 5.4 10^3/uL (1.7-8.2); BASOPHILS % (AUTO) 0.3 % (0-2); EOSINOPHILS % (AUTO) 1.6 % (0-6); HEMATOCRIT 35.8 % (36.0-47.0); HEMOGLOBIN 11.9 g/dL (12.0-15.5); LYMPHOCYTES % (AUTO) 26.7 % (13-45); MEAN CORPUSCULAR HEMOGLOBIN 28.5 pg (27.0-33.4); MEAN CORPUSCULAR HGB CONC 33.4 g/dL (32.0-36.0); MEAN CORPUSCULAR VOLUME 85 fl (80-97); PLATELET COUNT 267 10^3/uL (150-450); RED BLOOD COUNT 4.19 10^6/uL (3.72-5.28); RED CELL DISTRIBUTION WIDTH 14.5 % (11.5-14.0); SEGMENTED NEUTROPHILS % (AUTO) 63.4 % (42-78); TOTAL CELLS COUNTED % (AUTO) 100 %; WHITE BLOOD COUNT 8.5 10^3/uL (4.0-10.5)
[2019-05-14 11:13] LABS: APPEARANCE,URINE SLIGHTLY-CLOUDY; BILIRUBIN,URINE NEGATIVE (NEGATIVE); COLOR,URINE YELLOW; GLUCOSE, URINE NEGATIVE (NEGATIVE); KETONES,URINE NEGATIVE (NEGATIVE); LEUKOCYTE ESTERASE,URINE NEGATIVE (NEGATIVE); NITRITE,URINE NEGATIVE (NEGATIVE); PROTEIN,URINE NEGATIVE (NEGATIVE); URINE SPECIFIC GRAVITY 1.017; UROBILINOGEN,URINE NEGATIVE mg/dL (<2.0)
[2019-05-14 11:23] LABS: URINE AMPHETAMINES SCREEN NEGATIVE; URINE BARBITURATES SCREEN NEGATIVE; URINE BENZODIAZEPINES SCREEN NEGATIVE; URINE COCAINE SCREEN NEGATIVE; URINE MARIJUANA (THC) SCREEN NEGATIVE; URINE METHADONE SCREEN NEGATIVE; URINE PHENCYCLIDINE SCREEN NEGATIVE
[~2019-05-17 05:01] MED LIST changes: +CEFAZOLIN SODIUM 2 GM in DEXTROSE 5%-WATER 100 ML IV PRN; +LACTATED RINGERS 1000 ML IV PRN; +LIDOCAINE 0.5% INJ-PF (5 MG/ML) 50 ML SDV SUBCUT PRN; -PROPOFOL INJ 200 MG/20 ML VIAL IV ONE; +RINGERS SOLUTION,LACTATED 1,000 ML IV ONE
[2019-05-17] MEDS ORDERED: CEFAZOLIN INJ 1 GM VIAL ONE (06:13)
[2019-05-17] MEDS ORDERED: OXYTOCIN/NORMAL SALINE 20 UNIT/1,000 ML RTUINJ ONE (06:51)
[2019-05-17] MEDS ORDERED: DIPHENHYDRAMINE HCL 50 MG/ML VIAL IV PRN (07:05)
[2019-05-17] MEDS ORDERED: MEPERIDINE HCL/PF INJ 25 MG/1 ML DISP.SYRIN IV PRN (07:05)
[2019-05-17] MEDS ORDERED: FENTANYL CITRATE INJ/PF 100 MCG/2 ML AMPUL IV PRN ×3 (07:05)
[2019-05-17] MEDS ORDERED: ONDANSETRON HCL INJ/PF 4 MG/2 ML SDV IV PRN (07:05)
[2019-05-17] MEDS ORDERED: PROMETHAZINE HCL INJ 25 MG/1 ML VIAL IV PRN ×3 (07:05→09:29)
[2019-05-17] MEDS ORDERED: MORPHINE SULFATE 10 MG/ML INJ IV PRN (07:05)
[2019-05-17] MEDS ORDERED: METHYLERGONOVINE MALEATE INJ/PF 0.2 MG/1 ML AMPULE ONE (07:26)
[2019-05-17] MEDS ORDERED: MISOPROSTOL 0.2 MG TABLET ONE (07:26)
[2019-05-17] MEDS ORDERED: MISOPROSTOL 0.2 MG TABLET PR ONE (08:55)
[2019-05-17] MEDS ORDERED: PHENYLEPHRINE HCL INJ/PF 10 MG/1 ML SDV ONE (09:02)
[2019-05-17] MEDS ORDERED: KETOROLAC TROMETHAMINE INJ/PF 30 MG/1 ML SDV ONE (09:28)
--- NOTE | 2019-05-17 09:28 | Brief Operative Note ---
BRIEF OPERATIVE REPORT DATE OF SURGERY: 05/17/19 TIME OF SURGERY: 08:00 PREOPERATIVE DIAGNOSIS: Repeat section, Declines TOLAC, , 39+90ega, Obesity POSTOPERATIVE DIAGNOSIS: CORTEZ - delivered SURGEON: CLAUDIO LOTT FINDINGS: moderate scar tissue from rectus muscles to underlying uterus, normal uterus, normal bilateral tubes/ovaries. VMI delivered at 0814, Apgars 8/9, weight 4425g. IVF 1250ml, UOP 125ml, EBL 700ml (QBL then later reported at 800ml). Cytotec 1000mcg per rectum given at conclusion of procedure. COMPLICATIONS: none ESTIMATED BLOOD LOSS: 700ml TISSUE REMOVED OR ALTERED: placenta and cord not sent to pathology TECHNICAL PROCEDURE: Repeat Section with Scar revision
[2019-05-17] MEDS ORDERED: ACETAMINOPHEN 1,000 MG/100 ML RTUPB IV PRN (09:29)
[2019-05-17] MEDS ORDERED: DIPH/PERTUSS(ACELL)/TETANUS VAC/PF 0.5 ML SYR (>=10YO) IM PRN (09:29)
[2019-05-17] MEDS ORDERED: ACETAMINOPHEN 1,000 MG/100 ML RTUPB IV ONE (09:29)
[2019-05-17] MEDS ORDERED: ACETAMINOPHEN 325 MG TABLET PO PRN (09:29)
[2019-05-17] MEDS ORDERED: OXYTOCIN/NORMAL SALINE 20 UNIT/1,000 ML RTUINJ IV PRN (09:29)
[2019-05-17] MEDS ORDERED: SIMETHICONE 80 MG TAB.CHEW PO PRN (09:29)
[2019-05-17] MEDS ORDERED: HYDROMORPHONE HCL INJ/PF 2 MG/ML AMPULE IV PRN (09:29)
[2019-05-17] MEDS ORDERED: MEASLES,MUMPS&RUBELLA VACC/PF 0.5 ML VIAL SUBCUT PRN (09:29)
[2019-05-17] MEDS ORDERED: OXYCODONE-ACETAMINOPHEN 5-325 MG TABLET PO PRN ×2 (09:29)
[2019-05-17] MEDS ORDERED: RINGERS SOLUTION,LACTATED 1,000 ML IV PRN (09:29)
--- NOTE | 2019-05-17 09:29 | PDOC DELIVERY SUMMARY ---
Delivery Summary - Maternal Hx : II Hx Para: I Hx # Term Pregnancies: 1 Hx # Pregnancies: 0 Hx Total # of Abortions (Sponateous & Elective): 0 Number of Living Children: 1 JAZMÍN: 05/24/19 Gestational Age: 39 Risk Factors: Previous Ruptured Membranes: AROM Time of Rupture: 08:13 Fluids: Clear Fluid Description: clear - Delivery Labor: Not In Labor Presentation: Vertex Heart Rate Monitoring: Done Pre-Operatively Uterine Contraction Monitoring: External Support Person Present: Yes - AT [facility] Location: OR : Scheduled, Repeat Placenta: Within Normal Limits Placenta Description: normal Number of Vessels (Cord): 3 Nuchal Cord: No Delivery of Placenta Date: 05/17/19 Delivery of Placenta Time: 08:15 Estimated Blood Loss: 700 Delivery Quantitative Blood Loss (QBL): 800 - Medications Type of Anesthesia:: Spinal - Delivery Medications Delivery Meds: Cytotec 1000mcg Per Rectum/Vagina - Assess and Care Baby 1 Male Delivery of Date: 05/17/19 Delivery of Time: 08:14 at 1 minute: 8 at 5 minutes: 9 Preprinted Number On Band: [id number] Infant Skin to Skin: Yes Skin to Skin (Mins): 5 To Nursery At: 08:29 Mode of Transport: Bassinet Delivery Weight: 4,425 Infant Delivery Length: 19.5 in - Delivery Personnel Nursery RN: EMIL MD: CLAUDIO LOTT
[2019-05-17] MEDS ORDERED: MEPERIDINE HCL/PF INJ 25 MG/1 ML DISP.SYRIN ONE (09:43)
[2019-05-17] MEDS ORDERED: HYDROMORPHONE HCL INJ/PF 2 MG/ML AMPULE ONE ×2 (10:45→12:35)
[2019-05-17] MEDS ORDERED: KETOROLAC TROMETHAMINE INJ/PF 30 MG/1 ML SDV IV SCH (14:00)
[2019-05-17] MEDS: DOCUSATE SODIUM 100 MG CAPSULE PO SCH ×2 (16:24→17:52)
[2019-05-17] MEDS: PRENATAL VITAMIN W DHA CAPSULE PO SCH (16:24)
[2019-05-17] MEDS: KETOROLAC TROMETHAMINE INJ/PF 30 MG/1 ML SDV IV SCH (17:52)
--- NOTE | 2019-05-17 21:10 | Operative Report ---
Operative Report DATE OF SURGERY: 05/17/19 PREOPERATIVE DIAGNOSIS: Repeat section, History of section, D eclines TOLAC, , 39+0ega, Obesity POSTOPERATIVE DIAGNOSIS: macrosomia OPERATION: Repeat section with scar revision SURGEON: CLAUDIO LOTT ANESTHESIA: Spinal TISSUE REMOVED OR ALTERED: placenta and cord not sent to pathology COMPLICATIONS: None ESTIMATED BLOOD LOSS: 700 QUANTITATIVE BLOOD LOSS: 800 INTRAOPERATIVE FINDINGS: moderate scar tissue from rectus muscles to underlying uterus, normal uterus, normal bilateral tubes/ovaries. VMI delivered at 0814, Apgars 8/9, weight 4425g. IVF 1250ml, UOP 125ml, EBL 700ml (QBL then later reported at 800ml). Cytotec 1000mcg per rectum given at conclusion of procedure. PROCEDURE: Anesthesia provider: [Julius FREED, Michael Singh CRNA] Urine output: [125ml] IV fluids: [1250ml] Indications: [28yo at 39+0ega presents for repeat section. She has a history of section times one. She declines TOLAC. She desires minipill for contraception . The risks, benefits, alternatives, were reviewed and she desires to proceed with planned procedure.] Procedure: The patient was taken to the operating room where spinal anesthesia was obtained and found to be adequate. She was then prepped and draped in the normal sterile fashion and placed in the dorsal supine position with a leftward tilt. A Pfannenstiel skin incision scar was excised and then incision was carried through to the underlying layers of the fascia with the scalpel. The fascia was incised in the midline and the incision extended laterally with the Dominguez scissors. The superior aspect of the fascial incision was then grasped with Chelsea clamps elevated and the underlying rectus muscles dissected off [bluntly]. Attention was then turned to the inferior aspect of the fascial incision which in a similar fashion was grasped, tented up with Chelsea clamps, and the rectus muscles dissected off [bluntly]. The rectus muscles were then in the midline and the peritoneum at the amount identified and entered [bluntly]. The peritoneal incision was then extended superiorly and inferiorly with good visualization of the bladder. The bladder blade was inserted and the vesicouterine peritoneum identified grasped with Greek pickups and entered sharply with the Metzenbaum scissors. This incision was then extended laterally with the Metzenbaum scissors and a bladder flap created digitally. The bladder blade was then reinserted and the lower uterine segment incised in a transverse fashion with the scalpel. The uterine incision was then extended bluntly. The bladder blade was removed and the infant's head was delivered from cephalic presentation atraumatically. The nose and mouth were suctioned and the cord doubly clamped and cut. And the infant was handed off to waiting pediatricians. The placenta was then delivered spontaneously and the uterus exteriorized and cleared of all clots and debris. The uterine incision was then repaired with 1- 0 Vicryl in a running locked fashion. A second layer of the same suture was used to obtain hemostasis via imbrication of the initial layer. The bladder flap was then repaired with 3-0 chromic in a running fashion. The uterus was returned to the patient's abdomen and The gutters were cleared of all clots and debris. All operative sites were noted to be hemostatic. The fascia was reapproximated with 0 Vicryl in a running fashion from each lateral edge to the midline. The skin was closed with 3-0 Monocryl in a running subcuticular fashion with overlying Dermabond for additional dressing as well as wound clos ure. The patient tolerated the procedure well. Sponge lap needle and instrument counts are correct times 2. 2 g of Ancef were given prior to skin incision. The patient was taken to the recovery area awake and in stable condition.
[2019-05-18] MEDS: KETOROLAC TROMETHAMINE INJ/PF 30 MG/1 ML SDV IV SCH ×2 (03:24→09:47)
[2019-05-18 07:00] LABS: HEMATOCRIT 32.9 % (36.0-47.0); HEMOGLOBIN 11.1 g/dL (12.0-15.5); MEAN CORPUSCULAR HEMOGLOBIN 28.7 pg (27.0-33.4); MEAN CORPUSCULAR HGB CONC 33.8 g/dL (32.0-36.0); MEAN CORPUSCULAR VOLUME 85 fl (80-97); PLATELET COUNT 234 10^3/uL (150-450); RED BLOOD COUNT 3.87 10^6/uL (3.72-5.28); WHITE BLOOD COUNT 10.3 10^3/uL (4.0-10.5)
[2019-05-18] MEDS: PRENATAL VITAMIN W DHA CAPSULE PO SCH (09:47)
[2019-05-18] MEDS: DOCUSATE SODIUM 100 MG CAPSULE PO SCH ×2 (09:47→18:02)
--- NOTE | 2019-05-18 11:17 | PDOC PROGRESS REPORT ---
Subjective-OB Progress Note for:: 05/18/19 Subjective: Pt doing well, no concerns. She reports light bleeding reg diet and voiding without difficulty. Ambulatory and passing flatus. Physical Exam (OB) Vital Signs: Temp Pulse Resp BP Pulse Ox 97.8 F 74 16 105/58 L 100 05/18/19 07:40 05/18/19 07:40 05/18/19 07:40 05/18/19 07:40 05/18/19 07:40 Intake & Output 05/17/19 05/18/19 05/19/19 06:59 06:59 06:59 Intake Total 1100 400 Output Total 1800 Balance -700 400 Weight 117.934 kg - Dressing Removed: Yes Incision: Dressing Closure Type: Surgical Glue - Lochia Lochia Amount: Scant < 10 ml Lochia Color: Rubra/Red - Abdomen Description: Tender, Soft Hernia Present: No Fundal Description: Firm Fundal Height: u/u - u/2 Objective-Diagnostic Laboratory: 05/18/19 06:43 05/18/19 06:43 WBC 10.3 RBC 3.87 Hgb 11.1 L Hct 32.9 L MCV 85 MCH 28.7 MCHC 33.8 RDW 15.0 H Plt Count 234 Assessment and Plan(PN) - Assessment and Plan (1) Delivery by section of full-term infant Is this a current diagnosis for this admission?: Yes (2) History of asthma Is this a current diagnosis for this admission?: Yes (3) Obesity compl pregn//puerperp Is this a current diagnosis for this admission?: Yes - Time Spent with Patient Time with patient: Less than 15 minutes Medications reviewed and adjusted accordingly: Yes - Disposition Anticipated Discharge: Home Within: within 24 hours
[2019-05-18] MEDS: IBUPROFEN 800 MG TABLET PO SCH ×2 (12:35→18:01)
[2019-05-19] MEDS: IBUPROFEN 800 MG TABLET PO SCH ×3 (00:57→14:47)
[2019-05-19] MEDS: PRENATAL VITAMIN W DHA CAPSULE PO SCH (10:08)
[2019-05-19] MEDS: DOCUSATE SODIUM 100 MG CAPSULE PO SCH (10:08)
--- NOTE | 2019-05-19 13:51 | PDOC DISCHARGE SUMMARY ---
Impression - Admit/DC Date/PCP Admission Date/Primary Care Provider: 05/17/19 05:01 RUSSELL SILVA MD Discharge Date: 05/19/19 - Discharge Diagnosis (1) Delivery by section of full-term infant Is this a current diagnosis for this admission?: Yes (2) History of asthma Is this a current diagnosis for this admission?: Yes (3) Obesity compl pregn//puerperp Is this a current diagnosis for this admission?: Yes - Additional Information Resuscitation Status: Full Code Discharge Diet: Regular Discharge Activity: Balance Activity w/Rest, No Lifting Over 10 Pounds, No Lifting/Push/Pulling, Pelvic Rest, No tub bath Referrals: RUSSELL SILVA MD [Primary Care Provider] - Prescriptions: Ibuprofen [Motrin 800 mg Tablet] 800 mg PO Q8HP PRN #60 tablet PRN Reason: Oxycodone HCl/Acetaminophen [Percocet 5-325 mg Tablet] 1 tab PO Q4HP PRN #30 tablet PRN Reason: Home Medications: Prenat 115/Iron Fum/Folic/Dss [ 19 Tablet] 1 tab PO DAILY 06/28/16 Ibuprofen [Motrin 800 mg Tablet] 800 mg PO Q8HP PRN #60 tablet 05/19/19 Oxycodone HCl/Acetaminophen [Percocet 5-325 mg Tablet] 1 tab PO Q4HP PRN #30 tablet 05/19/19 HPI Gestational Age: 39 Reason(s) for Admission: Ceasarean Section-Repeat Procedures: NST Intrapartum Procedure(s): : Low Cervical, Transverse Results Laboratory Results: WBC 10.3 10^3/uL (4.0-10.5) 05/18/19 06:43 RBC 3.87 10^6/uL (3.72-5.28) 05/18/19 06:43 Hgb 11.1 g/dL (12.0-15.5) L 05/18/19 06:43 Hct 32.9 % (36.0-47.0) L 05/18/19 06:43 MCV 85 fl (80-97) 05/18/19 06:43 MCH 28.7 pg (27.0-33.4) 05/18/19 06:43 MCHC 33.8 g/dL (32.0-36.0) 05/18/19 06:43 RDW 15.0 % (11.5-14.0) H 05/18/19 06:43 Plt Count 234 10^3/uL (150-450) 05/18/19 06:43 Lymph % (Auto) 26.7 % (13-45) 05/14/19 10:01 Swain % (Auto) 8.0 % (3-13) 05/14/19 10:01 Eos % (Auto) 1.6 % (0-6) 05/14/19 10:01 Baso % (Auto) 0.3 % (0-2) 05/14/19 10:01 Absolute Neuts (auto) 5.4 10^3/uL (1.7-8.2) 05/14/19 10:01 Absolute Lymphs (auto) 2.3 10^3/uL (0.5-4.7) 05/14/19 10:01 Absolute Monos (auto) 0.7 10^3/uL (0.1-1.4) 05/14/19 10:01 Absolute Eos (auto) 0.1 10^3/uL (0.0-0.6) 05/14/19 10:01 Absolute Basos (auto) 0.0 10^3/uL (0.0-0.2) 05/14/19 10:01 Seg Neutrophils % 63.4 % (42-78) 05/14/19 10:01 Urine Color YELLOW 05/14/19 10:01 Urine Appearance SLIGHTLY-CLOUDY 05/14/19 10:01 Urine pH 6.0 (5.0-9.0) 05/14/19 10:01 Ur Specific [place] 1.017 05/14/19 10:01 Urine Protein NEGATIVE mg/dL (NEGATIVE) 05/14/19 10:01 Urine Glucose (UA) NEGATIVE mg/dL (NEGATIVE) 05/14/19 10:01 Urine Ketones NEGATIVE mg/dL (NEGATIVE) 05/14/19 10:01 Urine Blood NEGATIVE (NEGATIVE) 05/14/19 10:01 Urine Nitrite NEGATIVE (NEGATIVE) 05/14/19 10:01 Urine Bilirubin NEGATIVE (NEGATIVE) 05/14/19 10:01 Urine Urobilinogen NEGATIVE mg/dL (<2.0) 05/14/19 10:01 Ur Leukocyte Esterase NEGATIVE (NEGATIVE) 05/14/19 10:01 Urine WBC (Auto) 1 /HPF 05/14/19 10:01 Urine RBC (Auto) 1 /HPF 05/14/19 10:01 U Hyaline Cast (Auto) 1 /LPF 05/14/19 10:01 Urine Bacteria (Auto) TRACE /HPF 05/14/19 10:01 Squamous Epi Cells Auto 6 /HPF 05/14/19 10:01 Urine Mucus (Auto) OCC /LPF 05/14/19 10:01 Urine Ascorbic Acid 20 (NEGATIVE) H 05/14/19 10:01 Urine Opiates Screen NEGATIVE 05/14/19 10:01 Urine Methadone Screen NEGATIVE 05/14/19 10:01 Ur Barbiturates Screen NEGATIVE 05/14/19 10:01 Ur Phencyclidine Scrn NEGATIVE 05/14/19 10:01 Ur Amphetamines Screen NEGATIVE 05/14/19 10:01 U Benzodiazepines Scrn NEGATIVE 05/14/19 10:01 Urine Cocaine Screen NEGATIVE 05/14/19 10:01 U Marijuana (THC) Screen NEGATIVE 05/14/19 10:01 Blood Type A POSITIVE 05/15/19 08:20 Antibody Screen NEGATIVE 05/15/19 08:20 Plan Plan of Treatment: follow up in 1 week at [facility] for incision check
[2019-05-19 14:39] VITALS: BP 125/78
== END 2019-05-19 15:30 | disposition home or self-care (01) | DRG 788 ==
LOC: 2S 05:01
PROVIDERS: ADMIT Student in an Organized Health Care Education/Training Program; ATTEND Student in an Organized Health Care Education/Training Program
PROC: 10D00Z1 Extraction of Products of Conception, Low, Open Approach (ICD-10-PCS; principal; 2019-05-17 07:45)
PROC: 3E0234Z Introduction of Serum, Toxoid and Vaccine into Muscle, Percutaneous Approach (ICD-10-PCS; 2019-05-19)
DX: O34.211 Maternal care for low transverse scar from previous cesarean delivery (principal); O99.214 Obesity complicating childbirth; E66.9 Obesity, unspecified; O36.63X0 Maternal care for excessive fetal growth, third trimester, not applicable or unspecified; Z3A.39 39 weeks gestation of pregnancy; Z23 Encounter for immunization; Z37.0 Single live birth
CPT/HCPCS: 1961; 36415; 59025; 80307; 81001; 85025; 85027; 86850; 86900; 86901; 90715; 94760; 94799; J0131; J0690; J1170; J1885; J2175; J2210; J2370; J2590; J3490; J7060; J7120